=== PATIENT | male | born 1955 | race Caucasian/White ===

== ENCOUNTER 2025-01-26 07:00 | Outpatient (CLI) | payer MEDICARE, OTHER, SELFPAY ==
--- OUTSIDE RECORDS SUMMARY | 2025-01-26 07:06 | XMS_ITS | Continuity of Care Document ---
Author Organization [facility] Address [address] [place] [address] [place] [address] Phone Care Team Providers Care Gui Developer Name Role Phone Imani Hernandez Unavailable Unavailable Procedures Procedure Date Eye Exam & Treatment Refraction Office/outpatient Visit, Est Eye Exam, New Patient Advance Directives Directive Yes / No Effective Date File Name No Information Encounters Encounter Description Practice Location Reason(s) For Visit Diagnoses Date Provider Providers Copied on Encounter [facility], [address] [place] [address] [address], [place], [place], [id number], [place] tel:[phone] SEC [facility] [place] No Information Jul-2 5-200 8 Mary Rodriguez [address] [facility] , [address], [place], [place], [facility], [place]. tel:[phone] Office/outpat ient Visit, Est [facility], [address] [place] [address] [address], [place], [place], [id number], [place] tel:[phone] SEC [facility] No Information Sep-0 6-200 7 Mray Rodriguez [address], [place], [address], [place]. tel:[phone] [facility], [address] [place] [address] [address], [place], [place], [id number], [place] tel:[phone] SEC [facility] No Information 2 3-200 7 Mary Rodriguez [address], [address], [place], [address], [place]. tel:[phone] Family History Family Member Type Diagnosis Age At Onset No Information Payers Payer name Insurance type Covered alliance party ID Authortesfaye billings(s) Medicaid [facility] [id number] Social History Type Description Quantity Date Captured Comments Sex Male Smoking Status No Information Chief Complaint And Reason For Visit No Information Reason For Referral Reason For Referral No Information History Of Present Illness Encounter Date Complaint History Of Prese nt Illness No Information Functional Status Date Functional Assessmen t No Information Instructions Date Instruction Additional Infor mation No Information Assessments Type Assessment Date No Information Patient Care Teams Name Effective Dates (start - stop) Status Members No Information
--- OUTSIDE RECORDS SUMMARY | 2025-01-26 07:06 | XMS_ITS | CONTINUITY OF CARE DOCUMENT ---
Author Name roquenathanshantell Address Unknown Organization [facility] Address [address] [place] [address] Phone [phone] Care Team Providers Care Spring Inspector Name Role Phone Manuel ROMERO, Timothy Shrestha Unavailable [phone] OVIDIO ROMERO, AMIE Unavailable [phone] SCOT ROMERO, JONH Virgen Unavailable [phone] PROBLEMS Condition Status Date Provider Notes CVA active Ever Burt HTN active Timothy Jackson MD PALPITATIONS-08/28 HOLTER SR completed - Taryn nder Javed CHEST PAIN-12/30 STENT LIBERT E L CIRC completed - Ever Burt LEG PAIN - 07/30 NIMCO DOP NEG - 12/30 LOW EXT NEG completed - Timothy Jackson MD SHORTNESS OF BREATH-06/29 SPIROMETRY MOD SEV OBS completed - Ever Burt PVD-07/30 YODIT NL completed - Timothy Jackson MD CAD - 07/30 CATH 50% ISS L CI RC EF 70 active Timothy Jackson MD Hypercholesterolemia active Angie Gonzalez lder Carotid artery stenosis, <50 % ICA b/l active Timothy Jackson MD Upper Airway Resistance Syndrome active Timothy Jackson MD Fatigue completed - Ever Burt Obesity active Timothy Jackson MD ENCOUNTERS Date Type Provider Location Encounter Diag nosis - In-person encounter Office Visit Timothy Jackson MD [facility] - In-person encounter Office Visit Timothy Jackson MD [facility] - In-person encounter Office Visit Timothy Jackson MD [facility] - In-person encounter Office Visit Timothy Jackson MD [facility] - In-person encounter Office Visit Timothy Jackson MD [facility] PALPITATIONS-08/28 HOLTER SRCHEST PAIN-12/30 STENT LIBERTE L CIRCSHORTNESS OF BREATH-06/29 SPIROMETRY MOD SEV OBSFatigue - In-person encounter Office Visit Timothy Jackson MD [facility] - In-person encounter Office Visit Timothy Jackson MD [facility] CVAUpper Airway Resistance Syndrome - In-person encounter Office Visit Timothy Jackson MD [facility] HTNLEG PAIN - 9 NIMCO DOP NEG - 2/09 LOW EXT NEGPVD-07/30 YODIT NLCAD - 07/30 CATH 50% ISS L CIRC EF 70Carotid artery stenosis, <50% ICA b/lUpper Airway Resistance SyndromeObesity - In-person encounter Office Visit Timothy Jackson MD [facility] HTNLEG PAIN - 07/30 NIMCO DOP NEG - 2/09 LOW EXT NEGCAD - 9 CATH 50% ISS L CIRC EF 70 - In-person encounter Office Visit Timothy Jackson MD [facility] - In-person encounter Office Visit Timothy Jackson MD [facility] - In-person encounter Office Visit Timothy Jackson MD [facility] Hypercholesterolemia - In-person encounter Office Visit Timothy Jackson MD [facility] - In-person encounter Office Visit Timothy Jackson MD [facility] - In-person encounter Office Visit Timothy Jackson MD [facility] - In-person encounter Office Visit Timothy Jackson MD [facility] - In-person encounter Office Visit Timothy Jackson MD [facility] - In-person encounter Office Visit Timothy Jackson MD [facility] - In-person encounter Office Visit Timothy Jackson MD [facility] HTN - In-person encounter Office Visit Timothy Jackson MD [facility] SHORTNESS OF BREATH-06/29 SPIROMETRY MOD SEV OBS - In-person encounter Office Visit Negro Gonzalez MD [facility] - In-person encounter Office Visit Timothy Jackson MD [facility] LEG PAIN - 07/30 NIMCO DOP NEG - 12/30 LOW EXT NEG - In-person encounter Office Visit Timothy Jackson MD [facility] CVAHTNCHEST PAIN-12/30 STENT LIBERTE L CIRC VITAL SIGNS Date Observation Value Provider Body Mass Index (Ratio) 29.37 kg/m2 Travis Karimi blood pressure, diastolic 91 mm[Hg] An hardy Patel blood pressure, systolic 135 mm[Hg] Angela Patel oxygen saturation, oximetry 98 % Nicci Patel pulse rate 70 /min Nicci Patel weight E&M 182 [lb_av] Nicci Patel respiratory rate E&M 16 /min Nicci patel blood pressure, cuff size large An hardy Patel height E&M 66 [in_i] Nicci Patel weight E&M 191 [lb_av] Peg Broussard in Body Mass Index (Ratio) 30.82 kg/m2 Bren Pimentel blood pressure, cuff size regular Jose Luis Palomo RN blood pressure, diastolic 78 mm[Hg] Jose Luis Palomo RN blood pressure, systolic 142 mm[Hg] Pavan Palomo RN oxygen saturation, oximetry 98 % Pavan Palomo RN respiratory rate E&M 20 /min Pavan beard RN pulse rate 62 /min Pavan Palomo RN weight E&M 191 [lb_av] Pavan Palomo RN Body Mass Index (Ratio) 31.28 kg/m2 [facility], cuff size regular Jeremy Welshby blood pressure, diastolic 70 mm[Hg] Jeremy Welshby blood pressure, systolic 140 mm[Hg] Adali Welshby pulse rate 62 /min Cecile Welshby oxygen saturation, oximetry 97 % Cecile Welshby respiratory rate E&M 19 /min Cecile Welshby weight E&M 193.8 [lb_av] Cecile Welshby height E&M 66 [in_i] Cecile Welshby Body Mass Index (Ratio) 31.95 kg/m2 Juan tineo [facility] blood pressure, diastolic 87 mm[Hg] Elia mares Pickett blood pressure, systolic 139 mm[Hg] Adelina dedrick Pickett blood pressure, cuff size regular Elia mares Pickett pulse rate 76 /min Ever Cardenas jazmín respiratory rate E&M 16 /min Hyacinht Pickett oxygen saturation, oximetry 97 % Hyacinth Pickett weight E&M 198 [lb_av] Hyacinth Yobanybel l height E&M 66 [in_i] Hyacinth Campbel l Body Mass Index (Ratio) 28.73 kg/m2 Juan tineo [facility] blood pressure, diastolic, left arm 70 mm [Hg] Cristal Whitehead blood pressure, systolic, left arm 130 mm [Hg] [facility] blood pressure, diastolic, right arm 70 m m[Hg] [facility] blood pressure, systolic, right arm 120 m m[Hg] [facility] blood pressure, diastolic 70 mm[Hg] Katrin lopez blood pressure, systolic 130 mm[Hg] Soledad rae oxygen saturation, oximetry 98 % [facility] respiratory rate E&M 16 /min [facility] pulse rate 70 /min [facility] weight E&M 178 [lb_av] [facility] height E&M 66 [in_i] [facility] Body [facility] Index (Ratio) 27.60 kg/m2 Juan Burt blood pressure, cuff size large Cy vishnu Pickett blood pressure, diastolic 80 mm[Hg] Cy vishnu Pickett blood pressure, systolic 122 mm[Hg] Adelina tse Pickett oxygen saturation, oximetry 98 % Hyacinth Pickett respiratory rate E&M 18 /min Hyacinth Pickett pulse rate 66 /min Hyacinth Haywoodbel l weight E&M 171 [lb_av] Hyacinth Campbel l height E&M 66 [in_i] Hyacinth Campbel l Body Mass Index (Ratio) 29.53 kg/m2 Juan Burt blood pressure, cuff size large Ellie Justice blood pressure, diastolic 80 mm[Hg] Ellie Justice blood pressure, systolic 110 mm[Hg] Marlon Justice oxygen saturation, oximetry 98 % Julieth Justice respiratory rate E&M 16 /min Julieth Justice pulse rate 78 /min Julieth Justice weight E&M 183 [lb_av] Julieth Justice height E&M 66 [in_i] Julieth Justice Body Mass Index (Ratio) 31.70 kg/m2 Juan Burt blood pressure, resting Yes Timothy Jackson MD blood pressure, diastolic 81 mm[Hg] Katrin Michael blood pressure, systolic 126 mm[Hg] Soledad Mcwilliams Michael oxygen saturation, oximetry 98 % Barrett Michael respiratory rate E&M 18 /min Murali Michael pulse rate 67 /min Barrett lucas weight E&M 196.4 [lb_av] Barrett bentonon height E&M 66 [in_i] Barrett Chavez christaon blood pressure, diastolic 95 mm[Hg] Mathew Portillo blood pressure, systolic 151 mm[Hg] Tim Portillo pulse rate 64 /min Angie Gonzalez er oxygen saturation, oximetry 98 % Angie Portillo respiratory rate E&M 16 /min Angie vidal Body Mass Index (Ratio) 30.82 kg/m2 Carranza stuart Portillo weight E&M 191 [lb_av] Angie Carlos er Body Mass Index (Ratio) 34.70 kg/m2 Anea harsh Brown blood pressure, diastolic, left arm 88 mm [Hg] Aneatris Brown blood pressure, systolic, left arm 138 mm [Hg] Aneatris Brown blood pressure, diastolic, right arm 108 mm[Hg] Aneatris Brown blood pressure, systolic, right arm 154 m m[Hg] Aneatris Brown blood pressure, diastolic 88 mm[Hg] An eatris Brown blood pressure, systolic 138 mm[Hg] Ane atris Brown pulse rate 77 /min Aneatris Julio oxygen saturation, oximetry 99 % Aneatris Julio respiratory rate E&M 17 /min Aneatri s [facility] weight E&M 215 [lb_av] Asuncionatris Julio orthostatic blood pr essure, sitting, left arm, diastolic 80 Sherry Adams orthostatic blood pr essure, sitting, left arm, systolic 116 Sherry Gutierrezoney orthostatic blood pr essure, sitting, right arm, diastolic 86 Sherry Gutierrezoney orthostatic blood pr essure, sitting, right arm, systolic 122 Sherry Gutierrezoney height E&M 66 [in_i] Sherry Adams height in centimeters E&M 167.64 cm Na anujkobe Adams Body Mass Index (Ratio) 32.56 kg/m2 Constantino cummings Moore blood pressure, diastolic, left arm 106 m m[Hg] [facility] blood pressure, systolic, left arm 161 mm [Hg] [facility] blood pressure, diastolic, right arm 101 mm[Hg] [facility] blood pressure, systolic, right arm 157 m m[Hg] [facility] blood pressure, diastolic 106 mm[Hg] Richards Moore blood pressure, systolic 161 mm[Hg] Thiago tristan Ballico pulse rate 78 /min [facility] oxygen saturation, oximetry 98 % [facility] respiratory rate E&M 16 /min [facility] weight E&M 201 [lb_av] Thiagotristan Moore Body Mass Index (Ratio) 35.64 kg/m2 Tere Portillo blood pressure, diastolic 96 mm[Hg] Mathew Portillo blood pressure, systolic 132 mm[Hg] Tim Portillo pulse rate 75 /min Angie Carlos segundoer oxygen saturation, oximetry 98 % Angie Bandar respiratory rate E&M 17 /min Angie G young weight E&M 220 [lb_av] Angie Carols segundoer blood pressure, diastolic, left arm 102 m m[Hg] Pavan Palomo RN blood pressure, systolic, left arm 149 mm [Hg] Pavan Palomo RN blood pressure, diastolic, right arm 94 m m[Hg] Pavan Palomo RN blood pressure, systolic, right arm 150 m m[Hg] Pavan Palomo RN blood pressure, diastolic 102 mm[Hg] Jose Luis Palomo RN blood pressure, systolic 149 mm[Hg] Pavan Palomo RN pulse rate 77 /min Pavan Palomo RN oxygen saturation, oximetry 98 % Pavan Palomo RN respiratory rate E&M 17 /min Pavan beard RN weight E&M 217 [lb_av] Pavan Palomo RN height E&M 66 [in_i] Pavan Palomo RN blood pressure, diastolic, left arm 79 mm [Hg] Darwin Moore blood pressure, systolic, left arm 115 mm [Hg] Darwin Moore blood pressure, diastolic, right arm 84 m m[Hg] Darwin Moore blood pressure, systolic, right arm 129 m m[Hg] Darwin Moore blood pressure, diastolic 79 mm[Hg] Gonzales blood pressure, systolic 115 mm[Hg] Thiago Moore pulse rate 76 /min Darwin Moore oxygen saturation, oximetry 98 % Darwin Moore respiratory rate E&M 16 /min Darwin Moore weight E&M 208 [lb_av] Darwin Moore blood pressure, diastolic, left arm 50 mm [Hg] Jesenia Patricia blood pressure, systolic, left arm 96 mm[ Hg] [facility] blood pressure, diastolic, right arm 51 m m[Hg] [facility] blood pressure, systolic, right arm 98 mm [Hg] [facility] blood pressure, diastolic 51 mm[Hg] Sherwin rey Patricia blood pressure, systolic 98 mm[Hg] Costa suresh [place] pulse rate 80 /min Jesenia [place] oxygen saturation, oximetry 94 % [facility] respiratory rate E&M 16 /min [facility] weight E&M 201 [lb_av] Jeseniasuresh Patricia blood pressure, diastolic, left arm 81 mm [Hg] Pavan Palomo RN blood pressure, systolic, left arm 123 mm [Hg] Pavan Palomo RN blood pressure, diastolic, right arm 79 m m[Hg] Pavan Palomo RN blood pressure, systolic, right arm 116 m m[Hg] Pavan Palomo RN blood pressure, diastolic 81 mm[Hg] Jose Luis Palomo RN blood pressure, systolic 123 mm[Hg] Pavan Palomo RN pulse rate 67 /min Pavan Palomo RN oxygen saturation, oximetry 97 % Pavan Palomo RN respiratory rate E&M 18 /min Pavan beard RN weight E&M 201 [lb_av] Pavan Palomo RN blood pressure, diastolic 69 mm[Hg] Bj Heredia blood pressure, systolic 109 mm[Hg] Agustin Heredia pulse rate 75 /min Angelica Heredia oxygen saturation, oximetry 98 % Angelica Heredia respiratory rate E&M 18 /min Dez Heredia weight E&M 189 [lb_av] Angelica Heredia blood pressure, diastolic, left arm 67 mm [Hg] Benjamin Gaines blood pressure, systolic, left arm 105 mm [Hg] Benjamin Gaines blood pressure, diastolic, right arm 65 m m[Hg] [facility], [facility] 102 m m[Hg] [facility], [facility] 65 mm[Hg] Sravani klein [place] blood pressure, systolic 102 mm[Hg] Selwyn klein [place] pulse rate 80 /min [facility], oximetry 98 % [facility] rate E&M 16 /min [facility] weight E&M 185.5 [lb_av] Benjamin [place] blood pressure, diastolic 57 mm[Hg] Jose Luis Palomo RN blood pressure, systolic 95 mm[Hg] Pavan Palomo RN blood pressure, diastolic, left arm 57 mm [Hg] Pavan Palomo RN blood pressure, systolic, left arm 95 mm[ Hg] Pavan Palomo RN blood pressure, diastolic, right arm 64 m m[Hg] Pavan Palomo RN blood pressure, systolic, right arm 108 m m[Hg] Pavan Palomo RN pulse rate 80 /min Angelica Heredia oxygen saturation, oximetry 98 % Angelica Heredia respiratory rate E&M 16 /min Dez Heredia weight E&M 182 [lb_av] Angelica Heredia blood pressure, diastolic 73 mm[Hg] Ca hannah Velasquez blood pressure, systolic 112 mm[Hg] Nacho Velasquez pulse rate 68 /min Kait Velasquez oxygen saturation, oximetry 98 % Kait Velasquez respiratory rate E&M 16 /min Kait le weight E&M 182 [lb_av] Kait Velasquez blood pressure, diastolic 103 mm[Hg] Jose Luis Palomo RN blood pressure, systolic 164 mm[Hg] Pavan Palomo RN pulse rate 69 /min Pavan Palomo RN oxygen saturation, oximetry 100 % Pavan Palomo RN respiratory rate E&M 18 /min Pavan beard RN weight E&M 184 [lb_av] Pavan Dewey TIM blood pressure, diastolic 87 mm[Hg] Jose Luis Palomo RN blood pressure, systolic 135 mm[Hg] Pavan Palomo RN pulse rate 62 /min Pavan Palomo RN oxygen saturation, oximetry 99 % Pavan Palomo RN respiratory rate E&M 16 /min Pavan beard RN weight E&M 202 [lb_av] Pavan Palomo RN blood pressure, diastolic 91 mm[Hg] Jose Luis Palomo RN blood pressure, systolic 139 mm[Hg] Pavan Palomo RN pulse rate 74 /min Pavan Palomo RN oxygen saturation, oximetry 98 % Pavan Palomo RN respiratory rate E&M 18 /min Pavan beard RN weight E&M 195 [lb_av] Pavan Palomo RN ALLERGIES Allergy Name Onset Date Reaction Criticality Status COZAAR cough cough Low Criticality active RESULTS Date Observation Value Provider Reference Range Interpretation Location hemoglobin A1C, blood, as % of total hemoglobin 5.0 % [facility] LDL cholesterol, serum 62 mg/dL [facility] triglyceride, serum, fasting 143 mg/dL Pavan Palomo RN HDL cholesterol, serum 29 mg/dL Pavan Palomo RN LDL cholesterol, serum 88 mg/dL Pavan Palomo RN cholesterol, serum 146 mg/dL Pavan Palomo RN international normalized ratio (INR) 1.0 Jennie Graham RN blood glucose, fasting 83 mg/dL Jennie Graham RN creatinine, serum 1.27 mg/dL Jennie Graham RN urea nitrogen, blood 17 mg/dL Jennie Graham RN carbon dioxide, serum, total 29 mmol/L Jennie Graham RN chloride, serum 102 mmol/L [facility] potassium, serum 4.2 mmol/L [facility] sodium, serum 136 mmol/L [facility] platelet count 162 10*3/uL [facility] hematocrit, blood 35.8 % [facility] hemoglobin, blood 12.8 g/dL [facility] leukocyte count, blood 6.2 10*3/mm3 [facility] triglyceride, serum, fasting 110 mg/dL [facility] HDL cholesterol, serum 58 mg/dL [facility] LDL cholesterol, serum 62 mg/dL [facility] cholesterol, serum 142 mg/dL [facility] alanine aminotransferase (SGPT), serum 33 1/L [facility] aspartate aminotransferase (SGOT), serum 21 1/L [facility] creatinine, serum 1.07 mg/dL [facility] urea nitrogen, blood 12 mg/dL [facility] carbon dioxide, serum, total 31 mmol/L [facility] chloride, serum 104 mmol/L [facility] potassium, serum 3.5 mmol/L [facility] sodium, serum 140 mmol/L [facility] platelet count 173 10*3/uL [facility] hematocrit, blood 42.0 % [facility] hemoglobin, blood 15.4 g/dL [facility] erythrocyte (RBC) count 5.35 10*6/mm3 [facility] leukocyte count, blood 6.7 10*3/mm3 [facility] GLENROY HISTORY OF MEDICATION USE Medication Status Instructions Dates Provider Indications Com ments hydrochlorothiazide 12.5 mg capsule active TAKE ONE CAPSULE BY MOUTH EVERY DAY 12/02 Timothy Jackson MD carvedilol 12.5 mg tablet active TAKE ONE TABLET BY MOUTH TWICE DAILY Cyndie Pimentel ibuprofen 400 mg tablet active 1 tablet twice a day as needed 06/14 Timothy Jackson MD TYLENOL TABLET active Take four times a day as needed 06/14 Timothy Jackson MD amlodipine 5 mg tablet active 1 tablet once a day 06/05 Cecile Saucedo hydrochlorothiazide 12.5 mg capsule completed Take 1 capsule by mouth once a day 12/31 - 12/02 James Steiner simvastatin 10 mg tablet active 1 tablet once a day 06/11 Cecile Saucedo SIMVASTATIN 10 MG ORAL TABLET completed ONE TAB. AT BEDTIME 12/13 - 12/27 Timothy Jackson MD LOSARTAN POTASSIUM-HCTZ 50-12.5 MG ORAL TABLET completed one tab daily - 02/18 Pavan Palomo RN IBUPROFEN completed - 07/29 Angie Portillo NAPROSYN 375 MG ORAL TABLET completed take 2 daily - 07/29 Jesenia Patricia CYCLOBENZAPRINE HCL 10 MG ORAL TABLET completed take one daily - 07/29 Jesenia Patricia carvedilol 12.5 mg tablet completed 1 tablet twice a day 06/11 - Cyndie Pimentel BENICAR HCT 20-12.5 MG ORAL TABLET completed po once daily 05/21 - 12/13 Pavan Palomo RN PLAVIX 75 MG ORAL TABLET completed ONCE DAILY 12/27 - 11/29 Timothy Jackson MD HYDROCHLOROT completed 25mg every day - 05/21 Pavan Palomo RN ASPIRIN 81 MG ORAL TABLET active 1 tablet once a day Pavan Palomo RN NORVASC 10 MG ORAL TABLET completed ONE TAB. DAILY 01/22 - 05/19 Timothy Jackson MD SOCIAL HISTORY Date Observation Value Provider drug use no Niccizak Patel alcohol use no Nicci Jorge passive cigarette sm beata exposure no Nicci Jorge smoking status Never smoker Nicci Patel social history reviewed E&M revi ewed - no changes required Timothy Jackson MD social history E&M Marital Statu s: L alejandra with family/friends E thnicity: Smoking History: Fermin villar has never smoked. Timothy Jackson MD social history reviewed E&M revi ewed - no changes required Timothy Jackson MD exercise type yard work Cecile Saucedo physical exercise, frequency, days per week no Cecile Saucedo caffeine use, averag e drinks per day 0 /d Cecile Saucedo passive cigarette sm beata exposure no Cecile Saucedo smoking status Never smoker Cecile Saucedo social history reviewed E&M revi ewed - no changes required Ever Burt physical exercise, frequency, days per week no Hyacinth Pickett caffeine use, averag e drinks per day 0 /d Hyacinth Pickett passive cigarette sm beata exposure no Hyacinth Pickett smoking status Never smoker Hyacinth scanlon social history reviewed E&M revi ewed - no changes required Ever Burt exercise type yard work Cristal O'Junior alcohol use, average drinks per day none Cristal O'Junior alcohol use no Cristal O'Junior caffeine use, averag e drinks per day 0 /d Cristal O'Junior drug use no Cristal O'Junior passive cigarette sm beata exposure no Cristal O'Junior smoking status Never smoker Cristal O'Junior social history reviewed E&M revi ewed - no changes required Timothy Jackson MD exercise type yard work Hyacinth bishop alcohol use, average drinks per day none Hyacinth Pickett alcohol use no Hyacinth rahman caffeine use, averag e drinks per day 0 /d Hyacinth Pickett drug use no Hyacinth rahman passive cigarette sm beata exposure no Hyacinth Pickett smoking status Never smoker Hyacinth scanlon social history E&M Marital Statu s: Edin roberts with family/friends E thnicity: Smoking History: Fermin villar has never smoked. Ever Javed social history reviewed E&M revi ewed - no changes required Ever Javed exercise type yard work Julieth Justice physical exercise, frequency, days per week no Julieth Justice alcohol use, average drinks per day none Julieth Justice alcohol use no Julieth Justice caffeine use, averag e drinks per day 0 /d Ever Masberg drug use no Julieth Justice passive cigarette sm beata exposure no Julieth Justice smoking status Never smoker Julieth Justice social history reviewed E&M revi ewed - no changes required Timothy Jackson MD exercise type yard work Barrett Burns laura physical exercise, frequency, days per week no Barrett Michael alcohol use, average drinks per day none Barrett Michael alcohol use no Barrett Chavez christajoel caffeine use, averag e drinks per day no Barrett Michael drug use no Barrett lucas passive cigarette sm beata exposure no Barrett Michael smoking status Never smoker Barrett Frantz conteh social history E&M Marital Statu s: Edin roberts with family/friends E thnicity: Smoking History: Fermin villar has never smoked. Timothy Jackson MD social history reviewed E&M revi ewed - no changes required Timothy Jackson MD exercise type yard work Angie bello physical exercise, frequency, days per week no Angie Portillo alcohol use, average drinks per day none Angie Portillo alcohol use no Angie garcia caffeine use, averag e drinks per day no Angie Arzatefanlorrieeugenia drug use no Angie Gonzalez lder passive cigarette sm beata exposure no Angie Portillo smoking status Never smoker Angie franco exercise type yard work Ilsa Blunt physical exercise, frequency, days per week no Ilsa Blunt alcohol use, average drinks per day none Ilsa Blunt caffeine use, averag e drinks per day no Ilsa Blunt drug use no Ilsa Blunt passive cigarette sm beata exposure no Ilsa Blunt smoking status Never smoker Ilsa Blunt social history reviewed E&M reviewed Timothy Jackson MD exercise type yard work Thiagokatharinetristan Soto n drug use no Denyetristan Moore drug use none Timothy Jackson MD social history reviewed E&M reviewed Timothy Jackson MD drug use no Pavan Palomo RN passive cigarette sm beata exposure no Pavan Palomo RN social history reviewed E&M reviewed Pavan Palomo RN smoking status never smoker Pavan Palomo RN social history reviewed E&M reviewed Pavan Palomo RN social history reviewed E&M reviewed Timothy Jackson MD social history reviewed E&M reviewed Pavan Palomo RN social history reviewed E&M reviewed Pavan Palomo RN social history reviewed E&M reviewed Pavan Palomo RN social history reviewed E&M reviewed Pavan Palomo RN social history reviewed E&M reviewed Pavan Palomo RN social history reviewed E&M reviewed Pavan Palomo RN social history reviewed E&M reviewed Pavan Palomo RN social history E&M Marital Statu s: L alejandra with family/friends E thnicity: Pavan Palomo RN social history reviewed E&M reviewed Pavan Palomo RN physical exercise, frequency, days per week no [facility] caffeine use, averag e drinks per day no [facility] alcohol use, average drinks per day none [facility] smoking status Non-smoker [facility] FUNCTIONAL STATUS Date Observation Value Provider HRA, CV Assess/Plan, Angina (inactive) Management Plan continue current therapy Timothy Jackson MD HRA, CV Assess/Plan, Angina (inactive) Management Plan continue current therapy Timothy Jackson MD HRA, CV Assess/Plan, Angina (inactive) Management Plan continue current therapy [facility] HRA, CV Assess/Plan, Angina (inactive) Management Plan continue current therapy [facility] HRA, CV Assess/Plan, Angina (inactive) Management Plan continue current therapy Timothy Jackson MD HRA, CV Assess/Plan, Angina (inactive) Management Plan continue current therapy Timothy Jackson MD HRA, CV Assess/Plan, Angina (inactive) Management Plan continue current therapy Timothy Jackson MD MENTAL STATUS Date Observation Value Provider assessment of judgme nt and insight E&M Alert and oriented to time, place and person. Mood and affect are normal. Timothy Jackson MD assessment of judgme nt and insight E&M Alert and oriented to time, place and person. Mood and affect are normal. Timothy Jackson MD assessment of judgme nt and insight E&M Alert and oriented to time, place and person. Mood and affect are normal. Pavan Palomo RN assessment of judgme nt and insight E&M Alert and oriented to time, place and person. Mood and affect are normal. Pavan Palomo RN assessment of judgme nt and insight E&M Alert and oriented to time, place and person. Mood and affect are normal. Timothy Jackson MD assessment of judgme nt and insight E&M Alert and oriented to time, place and person. Mood and affect are normal. Pavan Palomo RN assessment of judgme nt and insight E&M Alert and oriented to time, place and person. Mood and affect are normal. Pavan Palomo RN assessment of judgme nt and insight E&M Alert and oriented to time, place and person. Mood and affect are normal. Pavan Palomo RN assessment of judgme nt and insight E&M Alert and oriented to time, place and person. Mood and affect are normal. Pavan Palomo RN assessment of judgme nt and insight E&M Alert and oriented to time, place and person. Mood and affect are normal. Pavan Palomo RN assessment of judgme nt and insight E&M Alert and oriented to time, place and person. Mood and affect are normal. Pavan Palomo RN assessment of judgme nt and insight E&M Alert and oriented to time, place and person. Mood and affect are normal. Pavan Palomo RN assessment of judgme nt and insight E&M Alert and oriented to time, place and person. Mood and affect are normal. Pavan Palomo RN FAMILY HISTORY Family Member Condition Full Brother Family History of CV A or Stroke: Full Sister Family History of CV A or Stroke: Mother Family History of Hy pertension: INSURANCE PROVIDERS Payer name Policy type / Coverage type Dwight red democrat [place] [employer] Medicaid [id number] ADVANCE DIRECTIVES Name Date DISCUSSED - NO DECISION MADE TREATMENT PLAN Date Name Performer [id number],C, W eight loss advised Cyndie Pimentel [id number],C, H is updated medication list for this problem includes: Simvastatin 10 Mg Tablet (Simvastatin) ..... 1 tablet once a day Cyndie Pimentel [id number],C, B P today: 142/78 P rior BP: 140/70 (09/02/2021) Labs Reviewed: C reat: 1.27 (08/14/2009) C hol: 146 (12/13/2012) HDL: 29 (12/13/2012) LDL: 62 (12/08/2016) T (12/13/2012) His updated medication list for this problem includes: Hydrochlorothiazide 12.5 Mg Capsule (Hydrochlorothiazide) ..... Take one capsule by mouth every day Carvedilol 12.5 Mg Tablet (Carvedilol) ..... Take one tablet by mouth twice daily Amlodipine 5 Mg Tablet (Amlodipine) ..... 1 tablet once a day Cyndie Loren [id number],C,P t denies chest pain and SOB. He has CAD stents placed over 10 years ago. In view of his hx, will check A1C, lipid panel, echo, and stress test routine H is updated medication list for this problem includes: Carvedilol 12.5 Mg Tablet (Carvedilol) ..... Take one tablet by mouth twice daily Amlodipine 5 Mg Tablet (Amlodipine) ..... 1 tablet once a day Cyndie Pimentel [id number],S, Recommend to check fasting lipid panel. Keep LDL < 70. H is updated medication list for this problem includes: Simvastatin 10 Mg Tablet (Simvastatin) ..... 1 tablet once a day Cyndie Pimentel [id number],C, B P today: 140/70 P rior BP: 139/87 (09/08/2020) Labs Reviewed: C reat: 1.27 (08/14/2009) C hol: 146 (12/13/2012) HDL: 29 (12/13/2012) LDL: 62 (12/08/2016) T (12/13/2012) His updated medication list for this problem includes: Carvedilol 12.5 Mg Tablet (Carvedilol) ..... 1 tablet twice a day Amlodipine 5 Mg Tablet (Amlodipine) ..... 1 tablet once a day Hydrochlorothiazide 12.5 Mg Capsule (Hydrochlorothiazide) ..... Take 1 capsule by mouth once a day Cyndie Pimentel [id number],S, Cyndie parsons [id number],S, M ost recent carotid duplex was normal. Cyndie Pimentel [id number],C,O linda doing well. Pt denies SOB and chest pain. Will obtain f/u echo. Recommend to check fasting lipid panel. Keep LDL < 70. H is updated medication list for this problem includes: Carvedilol 12.5 Mg Tablet (Carvedilol) ..... 1 tablet twice a day Amlodipine 5 Mg Tablet (Amlodipine) ..... 1 tablet once a day Cyndie Pimentel Cardiology:BP is mil dly elevated. We advised her to monitor at home and contact us if it is still elevated. BP today: 135/91 P rior BP: 142/78 (02/02/2023) His updated medication list for this problem includes: Hydrochlorothiazide 12.5 Mg Capsule (Hydrochlorothiazide) ..... Take one capsule by mouth every day Carvedilol 12.5 Mg Tablet (Carvedilol) ..... Take one tablet by mouth twice daily Amlodipine 5 Mg Tablet (Amlodipine) ..... 1 tablet once a day Austin Karimi Cardiology:He denies chest pain and SOB. He has CAD stents placed over 10 years ago. Last year echo showed normal EF. Stress test showed some nonspecific changes. Not diagnostic for ischemia. I recommended stress test with imaging however he not interested. His updated medication list for this problem includes: Carvedilol 12.5 Mg Tablet (Carvedilol) ..... Take one tablet by mouth twice daily Amlodipine 5 Mg Tablet (Amlodipine) ..... 1 tablet once a day Austin Karimi Cardiology: H is updated medication list for this problem includes: Simvastatin 10 Mg Tablet (Simvastatin) ..... 1 tablet once a day [facility]imi Cardiology [facility]imi Cardiology: W eight loss advised Cyndie Pimentel Cardiology: H is updated medication list for this problem includes: Simvastatin 10 Mg Tablet (Simvastatin) ..... 1 tablet once a day Cyndie Pimentel Cardiology: B P today: 142/78 P rior BP: 140/70 (09/02/2021) Labs Reviewed: C reat: 1.27 (08/14/2009) C hol: 146 (12/13/2012) HDL: 29 (12/13/2012) LDL: 62 (12/08/2016) T (12/13/2012) His updated medication list for this problem includes: Hydrochlorothiazide 12.5 Mg Capsule (Hydrochlorothiazide) ..... Take one capsule by mouth every day Carvedilol 12.5 Mg Tablet (Carvedilol) ..... Take one tablet by mouth twice daily Amlodipine 5 Mg Tablet (Amlodipine) ..... 1 tablet once a day Cyndie Pimentel Cardiology:Pt denies chest pain and SOB. He has CAD stents placed over 10 years ago. In view of his hx, will check A1C, lipid panel, echo, and stress test routine H is updated medication list for this problem includes: Carvedilol 12.5 Mg Tablet (Carvedilol) ..... Take one tablet by mouth twice daily Amlodipine 5 Mg Tablet (Amlodipine) ..... 1 tablet once a day Cyndie Pimentel Cardiology: Recommen d to check fasting lipid panel. Keep LDL < 70. H is updated medication list for this problem includes: Simvastatin 10 Mg Tablet (Simvastatin) ..... 1 tablet once a day Cyndie Pimentel Cardiology: B P today: 140/70 P rior BP: 139/87 (09/08/2020) Labs Reviewed: C reat: 1.27 (08/14/2009) C hol: 146 (12/13/2012) HDL: 29 (12/13/2012) LDL: 62 (12/08/2016) T (12/13/2012) His updated medication list for this problem includes: Carvedilol 12.5 Mg Tablet (Carvedilol) ..... 1 tablet twice a day Amlodipine 5 Mg Tablet (Amlodipine) ..... 1 tablet once a day Hydrochlorothiazide 12.5 Mg Capsule (Hydrochlorothiazide) ..... Take 1 capsule by mouth once a day Cyndie Pimentel Cardiology Cyndie Zaragoza eyer Cardiology: M ost recent carotid duplex was normal. Cyndie Pimentel Cardiology:Overall d oing well. Pt denies SOB and chest pain. Will obtain f/u echo. Recommend to check fasting lipid panel. Keep LDL < 70. H is updated medication list for this problem includes: Carvedilol 12.5 Mg Tablet (Carvedilol) ..... 1 tablet twice a day Amlodipine 5 Mg Tablet (Amlodipine) ..... 1 tablet once a day Cyndie Pimentel Cardiology follow up :Has hx of CVA. Discussed [facility] but pt not interested at this time. [facility] Cardiology follow up :His updated medication list for this problem includes: Simvastatin 10 Mg Oral Tablet (Simvastatin) ..... One tablet daily [facility] Cardiology follow up :BP today: 139/87 P rior BP: 130/70 (06/13/2019) His updated medication list for this problem includes: Amlodipine Besylate 5 Mg Oral Tablet (Amlodipine besylate) ..... One tab. daily Hydrochlorothiazide 12.5 Mg Oral Capsule (Hydrochlorothiazide) ..... One capsule daily Carvedilol 12.5 Mg Oral Tablet (Carvedilol) ..... One tab twice a day [facility] Cardiology follow up :Doing well. No chest pain or SOB. We will obtain a f/u echo. Will continue current medications. His updated medication list for this problem includes: Amlodipine Besylate 5 Mg Oral Tablet (Amlodipine besylate) ..... One tab. daily Aspirin 81 Mg Oral Tablet (Aspirin) ..... One tab. daily Carvedilol 12.5 Mg Oral Tablet (Carvedilol) ..... One tab twice a day [facility] Cardiology:Down ~20 lbs since . [facility] Card[facility]:Recommend ed for PCP to check lipid and liver panels and adjust medications to keep LDL less than 70. Labs reviewed: C HOL: 134 (12/08/2016) HDL: 45 (12/08/2016) LDL: 62 (12/08/2016) TRI (12/08/2016) His updated medication list for this problem includes: Simvastatin 10 Mg Oral Tablet (Simvastatin) ..... One tab. at bedtime [facility] Cardiology:BP today: 130/70 P rior BP: 122/80 (06/14/2018) His updated medication list for this problem includes: Amlodipine Besylate 5 Mg Oral Tablet (Amlodipine besylate) ..... One tab daily Hydrochlorothiazide 12.5 Mg Oral Capsule (Hydrochlorothiazide) ..... One tab. daily Carvedilol 12.5 Mg Oral Tablet (Carvedilol) ..... One tab twice a day [facility] Cardiology:Denies ch est pain or SOB. Does not have fatigue or dizziness. No new EKG changes. His updated medication list for this problem includes: Amlodipine Besylate 5 Mg Oral Tablet (Amlodipine besylate) ..... One tab daily Aspirin 81 Mg Oral Tablet (Aspirin) ..... One tab. daily Carvedilol 12.5 Mg Oral Tablet (Carvedilol) ..... One tab twice a day [facility] Followup: BP today: 122/80 P rior BP: 110/80 (03/28/2017) His updated medication list for this problem includes: Amlodipine Besylate 5 Mg Oral Tablet (Amlodipine besylate) ..... One tab daily Hydrochlorothiazide 12.5 Mg Oral Capsule (Hydrochlorothiazide) ..... One tab. daily Carvedilol 12.5 Mg Oral Tablet (Carvedilol) ..... One tab twice a day [facility] Followup: His updated medication list for this problem includes: Amlodipine Besylate 5 Mg Oral Tablet (Amlodipine besylate) ..... One tab daily Aspirin 81 Mg Oral Tablet (Aspirin) ..... One tab. daily Carvedilol 12.5 Mg Oral Tablet (Carvedilol) ..... One tab twice a day [facility] Follow up :Exercise and weight loss advised. [facility] Follow up :His updated medication list for this problem includes: Simvastatin 10 Mg Tabs (Simvastatin) ..... One tab. at bedtime [facility] Follow up :BP today: 110/80 P rior BP: 126/81 (11/29/2016) His updated medication list for this problem includes: Amlodipine Besylate 5 Mg Oral Tabs (Amlodipine besylate) ..... One tab daily Hydrochlorothiazide 12.5 Mg Caps (Hydrochlorothiazide) ..... One tab. daily Carvedilol 12.5 Mg Tabs (Carvedilol) ..... One tab twice a day [facility] Cardiology Follow up :Resolved. Echo showed normal EF. Sleep study did not show significant sleep apnea. [facility] Follow up :Most recent carotid duplex was normal. [facility] Follow up :Most recent carotid duplex was normal. [facility] Follow up :No chest pain or SOB. His updated medication list for this problem includes: Amlodipine Besylate 5 Mg Oral Tabs (Amlodipine besylate) ..... One tab daily Aspirin 81 Mg Tabs (Aspirin) ..... One tab. daily Carvedilol 12.5 Mg Tabs (Carvedilol) ..... One tab twice a day [facility]:BP today: 126/81 P rior BP: 151/95 (12/31/2015) His updated medication list for this problem includes: Aspirin 81 Mg Tabs (Aspirin) ..... One tab. daily Carvedilol 12.5 Mg Tabs (Carvedilol) ..... One tab twice a day Losartan Potassium-hctz 50-12.5 Mg Tabs (Losartan potassium-hctz) ..... One tab daily Timothy Jackson MD Cardiology:Orders: L IPID PANEL (7600) H EMOGLOBIN A1c (496) H EPATIC FUNCTION PANEL (37399) CHOL: 146 (12/13/2012) LDL: 88 (12/13/2012) HDL: 29 (12/13/2012) T (12/13/2012) H is updated medication list for this problem includes: Simvastatin 10 Mg Tabs (Simvastatin) ..... One tab. at bedtime Timothy Jackson MD Cardiology:Will obtain f/u carot id duplex. Timothy Jackson MD Cardiology:STOP BANG score is 4+ . Timothy Jackson MD Cardiology:Orders: S leep Study Home (CPT-37207) Timothy Jackson MD Cardiology:Stable. N o chest pain or SOB. Will stop Plavix (last stent was in 2008). Continuing on ASA. Timothy Jackson MD Cardiology:CHOL: 146 (12/13/2012) LDL: 88 (12/13/2012) HDL: 29 (12/13/2012) T (12/13/2012) His updated medication list for this problem includes: Simvastatin 10 Mg Tabs (Simvastatin) ..... One tab. at bedtime Timothy Jackson MD Cardiology:BP today: 151/95 P rior BP: 138/88 (01/29/2015) His updated medication list for this problem includes: Aspirin 81 Mg Tabs (Aspirin) ..... One tab. daily Carvedilol 12.5 Mg Tabs (Carvedilol) ..... One tab twice a day Losartan Potassium-hctz 50-12.5 Mg Tabs (Losartan potassium-hctz) ..... One tab daily Timothy Jackson MD Cardiology:No complaints. Timothy Jackson MD Cardiology:No complaints. Timothy Jackson MD Cardiology:No complaints. Timothy Jackson MD Cardiology:No complaints. Timothy Jackson MD routine: H is updated medication list for this problem includes: Aspirin 81 Mg Tabs (Aspirin) ..... One tab. daily Norvasc 10 Mg Tabs (Amlodipine besylate) ..... One tab. daily Carvedilol 6.25 Mg Tabs (Carvedilol) ..... One tab. twice daily Plavix 75 Mg Tabs (Clopidogrel bisulfate) ..... Once daily BP today: 109/69 Prior BP: 102/65 (09/17/2009) N uclear Stress Findings: Adenosine mediated myocardial perfusion study Normal left ventricular systolic function with a calculated ejection fraction of 74%. Myocardial scintigraphy demonstrates inferior wall ischemia. GC (07/29/2009) S tress Echo Findings: Negative Dobutamine echocardiogram. T est is negative by EKG criteria. B aseline echo was normal. (08/21/2008) C ardiac Cath: There is 50% stenosis within the stent in the left circumflex. This is a borderline lesion and difficult to ascertain whether there is ischemia. Will continue medical management. If symptoms recur, we are going to bring in for cardiac catheterization with flow, with Radi wire assessment of the left circumflex and the left anterior descending. In addition, spirometry was abnormal and will defer to the primary physician for that. EF 70%. [facility] (08/20/2009) C ardiac Cath Comments: Successful stenting of the left circumflex using a 3.5 x 20mm Liberte stent. [facility] (12/25/2008) C arotid Doppler/Duplex: LESS THAN 50 % STENOSIS OF THE INTERNAL CAROTID A RTERIES BILATERALLY. (09/02/2008) A rterial Doppler (leg): NO EVIDENCE OF AN PSEUDOANEURYSM IN THE RIGHT GROIN. [facility] (12/27/2008) C HOL: 142 (12/18/2008) LDL: 62 (12/18/2008) HDL: 58 (12/18/2008) T (12/18/2008) H gb: 12.8 (08/14/2009) HCT: 35.8 (08/14/2009) RBC: 5.35 (12/18/2008) WBC: 6.2 (08/14/2009) B UN: 17 (08/14/2009) Creat: 1.27 (08/14/2009) Glucose: 83 (08/14/2009) N a+: 136 (08/14/2009) K+: 4.2 (08/14/2009) Cl: 102 (08/14/2009) INR: 1.0 (08/14/2009) Timothy Jackson MD Follow-up s/p Cardia c Cath: H is updated medication list for this problem includes: Aspirin 81 Mg Tabs (Aspirin) ..... One tab. daily Norvasc 10 Mg Tabs (Amlodipine besylate) ..... One tab. daily Carvedilol 6.25 Mg Tabs (Carvedilol) ..... One tab. twice daily Plavix 75 Mg Tabs (Clopidogrel bisulfate) ..... Once daily BP today: 102/65 Prior BP: 95/57 (08/11/2009) Nuclear Stress Findings: Adenosine mediated myocardial perfusion study Normal left ventricular systolic function with a calculated ejection fraction of 74%. Myocardial scintigraphy demonstrates inferior wall ischemia. (07/29/2009) S tress Echo Findings: Negative Dobutamine echocardiogram. T est is negative by EKG criteria. B aseline echo was normal. (08/21/2008) Cardiac Cath: There is 50% stenosis within the stent in the left circumflex. This is a borderline lesion and difficult to ascertain whether there is ischemia. Will continue medical management. If symptoms recur, we are going to bring in for cardiac catheterization with flow, with Radi wire assessment of the left circumflex and the left anterior descending. In addition, spirometry was abnormal and will defer to the primary physician for that. EF 70%. [facility] (08/20/2009) C ardiac Cath Comments: Successful stenting of the left circumflex using a 3.5 x 20mm Liberte stent. [facility] (12/25/2008) C arotid Doppler/Duplex: LESS THAN 50 % STENOSIS OF THE INTERNAL CAROTID A RTERIES BILATERALLY. (09/02/2008) A rterial Doppler (leg): NO EVIDENCE OF AN PSEUDOANEURYSM IN THE RIGHT GROIN. [facility] (12/27/2008) C HOL: 142 (12/18/2008) LDL: 62 (12/18/2008) HDL: 58 (12/18/2008) T (12/18/2008) H gb: 12.8 (08/14/2009) HCT: 35.8 (08/14/2009) RBC: 5.35 (12/18/2008) WBC: 6.2 (08/14/2009) B UN: 17 (08/14/2009) Creat: 1.27 (08/14/2009) Glucose: 83 (08/14/2009) N a+: 136 (08/14/2009) K+: 4.2 (08/14/2009) Cl: 102 (08/14/2009) INR: 1.0 (08/14/2009) Timothy Jackson MD f/u: H is updated medication list for this problem includes: Norvasc 10 Mg Tabs (Amlodipine besylate) ..... One tab. daily Aspirin 81 Mg Tabs (Aspirin) ..... One tab. daily Benicar Hct 20-12.5 Mg Tabs (Olmesartan medoxomil-hctz) ..... Po once daily Carvedilol 6.25 Mg Tabs (Carvedilol) ..... One tab. twice daily BP today: 95/57 Prior BP: 112/73 (07/16/2009) N uclear Stress Findings: Adenosine mediated myocardial perfusion study Normal left ventricular systolic function with a calculated ejection fraction of 74%. Myocardial scintigraphy demonstrates inferior wall ischemia. (07/29/2009) E chocardiogram: TDS. The left ventricular chamber size is normal. Mild concentric LVH. Normal left ventricular function. LV EF is estimated at 6 0%. Diastolic dysfunction. No evidence of MR, AR, TR, MT. O (12/18/2008) S tress Echo Findings: Negative Dobutamine echocardiogram. T est is negative by EKG criteria. B aseline echo was normal. (08/21/2008) C ardiac Cath: Severe single vessel coronary disease with 80% stenosis of the left circumflex. Moderate LV disease with 40-50% stenosis of the LAD and 40% of the RCA. EF 70%. Normal Renal arteries. [facility] (12/25/2008) C ardiac Cath Comments: Successful stenting of the left circumflex using a 3.5 x 20mm Liberte stent. [facility] (12/25/2008) H gb: 15.4 (12/18/2008) HCT: 42.0 (12/18/2008) RBC: 5.35 (12/18/2008) WBC: 6.7 (12/18/2008) B UN: 12 (12/18/2008) Creat: 1.07 (12/18/2008) Na+: 140 (12/18/2008) K+: 3.5 (12/18/2008) Cl: 104 (12/18/2008) SGOT (AST): 21 (12/18/2008) SGPT (ALT): 33 (12/18/2008) Timothy Jackson MD f/u: H is updated medication list for this problem includes: Norvasc 10 Mg Tabs (Amlodipine besylate) ..... One tab. daily Aspirin 81 Mg Tabs (Aspirin) ..... One tab. daily Benicar Hct 20-12.5 Mg Tabs (Olmesartan medoxomil-hctz) ..... Po once daily Carvedilol 6.25 Mg Tabs (Carvedilol) ..... One tab. twice daily BP today: 95/57 P rior BP: 112/73 (07/16/2009) & #13;Labs Reviewed: C reat: 1.07 (12/18/2008) C hol: 142 (12/18/2008) HDL: 58 (12/18/2008) LDL: 62 (12/18/2008) T (12/18/2008) Timothy Jackson MD routine: H is updated medication list for this problem includes: Norvasc 10 Mg Tabs (Amlodipine besylate) ..... One tab. daily Aspirin 81 Mg Tabs (Aspirin) ..... One tab. daily Plavix 75 Mg Tabs (Clopidogrel bisulfate) ..... Once daily Carvedilol 6.25 Mg Tabs (Carvedilol) ..... One tab. twice daily Timothy Jackson MD routine: H is updated medication list for this problem includes: Norvasc 10 Mg Tabs (Amlodipine besylate) ..... One tab. daily Aspirin 81 Mg Tabs (Aspirin) ..... One tab. daily Plavix 75 Mg Tabs (Clopidogrel bisulfate) ..... Once daily Carvedilol 6.25 Mg Tabs (Carvedilol) ..... One tab. twice daily BP today: 112/73 Prior BP: 164/103 (05/21/2009) S tress Echo Findings: Negative Dobutamine echocardiogram. T est is negative by EKG criteria. B aseline echo was normal. (08/21/2008) C arotid Doppler/Duplex: LESS THAN 50 % STENOSIS OF THE INTERNAL CAROTID A RTERIES BILATERALLY. (09/02/2008) A rterial Doppler (leg): NO EVIDENCE OF AN PSEUDOANEURYSM IN THE RIGHT GROIN. [facility] (12/27/2008) C HOL: 142 (12/18/2008) LDL: 62 (12/18/2008) HDL: 58 (12/18/2008) T (12/18/2008) H gb: 15.4 (12/18/2008) HCT: 42.0 (12/18/2008) RBC: 5.35 (12/18/2008) WBC: 6.7 (12/18/2008) B UN: 12 (12/18/2008) Creat: 1.07 (12/18/2008) Na+: 140 (12/18/2008) K+: 3.5 (12/18/2008) Cl: 104 (12/18/2008) Echocardiogram: TDS. The left ventricular chamber size is normal. Mild concentric LVH. Normal left ventricular function. LV EF is estimated at 60%. Diastolic dysfunction. No evidence of MR, AR, TR, MT. [facility] (12/18/2008) Timothy Jackson MD routine: H is updated medication list for this problem includes: Aspirin 81 Mg Tabs (Aspirin) ..... One tab. daily Plavix 75 Mg Tabs (Clopidogrel bisulfate) ..... Once daily Carotid Duplex Scan: L ESS THAN 50 % STENOSIS OF THE INTERNAL CAROTID A RTERIES BILATERALLY. (09/02/2008) Echocardiogram: T DS. The left ventricular chamber size is normal. Mild concentric LVH. Normal left ventricular function. LV EF is estimated at 6 0%. Diastolic dysfunction. No evidence of MR, AR, TR, MT. [facility]CO (12/18/2008) Timothy Jackson MD routine: H is updated medication list for this problem includes: Norvasc 10 Mg Tabs (Amlodipine besylate) ..... One tab. daily Aspirin 81 Mg Tabs (Aspirin) ..... One tab. daily Benicar Hct 20-12.5 Mg Tabs (Olmesartan medoxomil-hctz) ..... Po once daily Carvedilol 6.25 Mg Tabs (Carvedilol) ..... One tab. twice daily BP today: 112/73 P rior BP: 164/103 (05/21/2009) Labs Reviewed: C reat: 1.07 (12/18/2008) C hol: 142 (12/18/2008) HDL: 58 (12/18/2008) LDL: 62 (12/18/2008) T (12/18/2008) Timothy Jackson MD routine: H is updated medication list for this problem includes: Norvasc 10 Mg Tabs (Amlodipine besylate) ..... One tab. daily Aspirin 81 Mg Tabs (Aspirin) ..... One tab. daily Benicar Hct 20-12.5 Mg Tabs (Olmesartan medoxomil-hctz) ..... Po once daily Carvedilol 6.25 Mg Tabs (Carvedilol) ..... One tab. twice daily Timothy Jackson MD routine: O rders: A rterial Duplex Lower Extremity Bilateral (CPT-41646) V enous Doppler Bilateral LE (98256) Timothy Jackson MD routine: H is updated medication list for this problem includes: Norvasc 10 Mg Tabs (Amlodipine besylate) ..... One tab. daily Aspirin 81 Mg Tabs (Aspirin) ..... One tab. daily Benicar Hct 20-12.5 Mg Tabs (Olmesartan medoxomil-hctz) ..... Po once daily Carvedilol 6.25 Mg Tabs (Carvedilol) ..... One tab. twice daily BP today: 112/73 P rior BP: 164/103 (05/21/2009) Labs Reviewed: C reat: 1.07 (12/18/2008) C hol: 142 (12/18/2008) HDL: 58 (12/18/2008) LDL: 62 (12/18/2008) T (12/18/2008) Timothy Jackson MD routine: H is updated medication list for this problem includes: Norvasc 10 Mg Tabs (Amlodipine besylate) ..... One tab. daily Aspirin 81 Mg Tabs (Aspirin) ..... One tab. daily Benicar Hct 20-12.5 Mg Tabs (Olmesartan medoxomil-hctz) ..... Po once daily Carvedilol 6.25 Mg Tabs (Carvedilol) ..... One tab. twice daily BP today: 112/73 P rior BP: 164/103 (05/21/2009) Labs Reviewed: C reat: 1.07 (12/18/2008) C hol: 142 (12/18/2008) HDL: 58 (12/18/2008) LDL: 62 (12/18/2008) T (12/18/2008) Timothy Jackson MD routine: H is updated medication list for this problem includes: Norvasc 10 Mg Tabs (Amlodipine besylate) ..... One tab. daily Aspirin 81 Mg Tabs (Aspirin) ..... One tab. daily Plavix 75 Mg Tabs (Clopidogrel bisulfate) ..... Once daily Carvedilol 6.25 Mg Tabs (Carvedilol) ..... One tab. twice daily BP today: 112/73 Prior BP: 164/103 (05/21/2009) S tress Echo Findings: Negative Dobutamine echocardiogram. T est is negative by EKG criteria. B aseline echo was normal. (08/21/2008) C arotid Doppler/Duplex: LESS THAN 50 % STENOSIS OF THE INTERNAL CAROTID A RTERIES BILATERALLY. (09/02/2008) A rterial Doppler (leg): NO EVIDENCE OF AN PSEUDOANEURYSM IN THE RIGHT GROIN. [facility] (12/27/2008) C HOL: 142 (12/18/2008) LDL: 62 (12/18/2008) HDL: 58 (12/18/2008) T (12/18/2008) H gb: 15.4 (12/18/2008) HCT: 42.0 (12/18/2008) RBC: 5.35 (12/18/2008) WBC: 6.7 (12/18/2008) B UN: 12 (12/18/2008) Creat: 1.07 (12/18/2008) Na+: 140 (12/18/2008) K+: 3.5 (12/18/2008) Cl: 104 (12/18/2008) O rders: S tress Test - Nuclear (34148) Timothy Jackson MD post cath-stent: H is updated medication list for this problem includes: Norvasc 10 Mg Tabs (Amlodipine besylate) ..... One tab. daily Aspirin 81 Mg Tabs (Aspirin) ..... One tab. daily Plavix 75 Mg Tabs (Clopidogrel bisulfate) ..... Once daily Timothy Jackson MD post cath-stent: H is updated medication list for this problem includes: Norvasc 10 Mg Tabs (Amlodipine besylate) ..... One tab. daily Aspirin 81 Mg Tabs (Aspirin) ..... One tab. daily Plavix 75 Mg Tabs (Clopidogrel bisulfate) ..... Once daily BP today: 135/87 Prior BP: 139/91 (12/16/2008) S tress Echo Findings: Negative Dobutamine echocardiogram. T est is negative by EKG criteria. B aseline echo was normal. (08/21/2008) C arotid Doppler/Duplex: LESS THAN 50 % STENOSIS OF THE INTERNAL CAROTID A RTERIES BILATERALLY. (09/02/2008) A rterial Doppler (leg): NO EVIDENCE OF AN PSEUDOANEURYSM IN THE RIGHT GROIN. [facility] (12/27/2008) C HOL: 142 (12/18/2008) LDL: 62 (12/18/2008) HDL: 58 (12/18/2008) T (12/18/2008) H gb: 15.4 (12/18/2008) HCT: 42.0 (12/18/2008) RBC: 5.35 (12/18/2008) WBC: 6.7 (12/18/2008) B UN: 12 (12/18/2008) Creat: 1.07 (12/18/2008) Na+: 140 (12/18/2008) K+: 3.5 (12/18/2008) Cl: 104 (12/18/2008) Echocardiogram: TDS. The left ventricular chamber size is normal. Mild concentric LVH. Normal left ventricular function. LV EF is estimated at 6 0%. Diastolic dysfunction. No evidence of MR, AR, TR, MT. [facility] (12/18/2008) Timothy Jackson MD post cath-stent: H is updated medication list for this problem includes: Norvasc 10 Mg Tabs (Amlodipine besylate) ..... One tab. daily Aspirin 81 Mg Tabs (Aspirin) ..... One tab. daily B P today: 135/87 P rior BP: 139/91 (12/16/2008) Labs Reviewed: C reat: 1.07 (12/18/2008) C hol: 142 (12/18/2008) HDL: 58 (12/18/2008) LDL: 62 (12/18/2008) T (12/18/2008) Timothy Jackson MD office visit: H is updated medication list for this problem includes: Aspirin 81 Mg Tabs (Aspirin) ..... One tab. daily BP today: 139/91 Orders: E KG (CPT-49400) R enal Artery Duplex (CPT-45724) Timothy Jackson MD office visit: H is updated medication list for this problem includes: Metoprolol Succinate 25 Mg Tb24 (Metoprolol succinate) ..... One tab. daily Aspirin 81 Mg Tabs (Aspirin) ..... One tab. daily Orders: C ardiac Cath - GC (*) Timothy Jackson MD office visit: H is updated medication list for this problem includes: Metoprolol Succinate 25 Mg Tb24 (Metoprolol succinate) ..... One tab. daily Aspirin 81 Mg Tabs (Aspirin) ..... One tab. daily Orders: C ardiac Cath - GC (*) C omplete Echo (CPT-42249) Timothy Jackson MD office visit: H is updated medication list for this problem includes: Metoprolol Succinate 25 Mg Tb24 (Metoprolol succinate) ..... One tab twice a day Aspirin 81 Mg Tabs (Aspirin) ..... One tab. daily BP today: 139/91 Orders: E KG (CPT-61413) R enal Artery Duplex (CPT-51538) Timothy Jackson MD office visit: H is updated medication list for this problem includes: Aspirin 81 Mg Tabs (Aspirin) ..... One tab. daily Carotid Duplex Scan: L ESS THAN 50 % STENOSIS OF THE INTERNAL CAROTID A RTERIES BILATERALLY. 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 HEMOGLOBIN A1c LIPID PANEL Carotid Duplex Bilat eral Complete Echo LIPID PANEL STR - Nuclear Complete Echo Stress Test - Nuclea r Complete Echo Cardiac Cath - GC Stress Test - Nuclea r Spirometry Venous Doppler Bilat eral LE Arterial Duplex Lowe r Extremity Bilateral Complete Echo Cardiac Cath - GC Renal Artery Duplex HISTORY OF PROCEDURES Procedure Date Procedure Name Provider Procedure Notes S tatus EKG Timothy Jackson MD completed EKG Timothy Jackson MD completed EKG Timothy Jackson MD completed EKG Timothy Jackson MD completed EKG Timothy Jackson MD completed EKG Timothy Jackson MD completed SNOMED-CT: [id number] Current Medications Documented Timothy Jackson MD completed EKG Timothy Jackson MD completed SNOMED-CT: [id number] Current Medications Documented Timothy Jackson MD completed Schedule Followup Timothy Jackson MD 1 year com pleted SNOMED-CT: [id number] Current Medications Documented Timothy Jackson MD completed EKG Timothy Jackson MD completed EKG Timothy Jackson MD completed EKG Timothy Jackson MD completed ePrescribe - Check t his box if eRx is used Timothy Jackson MD completed EKG Timothy Jackson MD completed Lipid Strip Timothy Jackson MD completed KING Jackson MD completed KING Jackson MD completed KING Jackson MD completed
--- OUTSIDE RECORDS SUMMARY | 2025-01-26 07:06 | XMS_ITS | Data Portability ---
Author Organization [facility] Address [address] [place] [address] Care Team Providers Care Social Economist Name Role Phone VICKEY ELLISON Internal Medicine [phone] Assessment No assessment recorded. Plan of Treatment Reminders Order Date Submit Date Provider Last Modified By Organization Details Last Modified Time Details Appointments ANY 15 2024 10:30A M Vickey Ellison MD Not available Not available Not available Lab noninvasi ve colorecta l cancer DNA + occult blood screening , QL, stool 2023 024 [facility] (Cologuard Orders Only), [address], [address], [place], [address], 05/17/2024 19:15:23 PSA, total, serum or plasma 2023 024 [facility], [address], [address], [place], [address], 03/30/2024 13:14:43 noninvasi ve colorecta l cancer DNA + occult blood screening , QL, stool 2023 024 [facility] ([facility] Only), [address], [address], [place], [address], 04/11/2024 08:26:04 CMP, serum or plasma 2023 024 [facility], [address], [place], [address], 03/30/2024 13:14:41 lipid panel, serum 2023 024 [facility], [address], [place], [address], 03/30/2024 13:14:41 CBC 2023 [facility], [address], [place], [address], 03/30/2024 13:14:43 TSH, ultra-sen sitive, serum 2023 [facility], [address], [place], [address], 03/30/2024 13:14:42 Referral ophthalmo logist referral 2023 [facility], [address], [place], [address], 06/14/2024 13:15:00 Procedures None recorded. Surgeries None recorded. Imaging None recorded. Medication Orders amlodipin e 5 mg tablet 2023 [id number], [address], [place], [place], [id number], 03/15/2024 14:44:55 simvastat in 10 mg tablet 2023 [facility] #[id number], [address], [place], [place], [id number], 03/15/2024 14:44:52 Patient TargetsNo targets recorded. Patient Instructions Encounter Date Encounter Id Patient Instructions Last Modified By Organization Details Last Modified Time 12/20/2023 [id number] high cholesterol : care instructions [email or web address] Not available 12/20/2023 14:09:56 03/15/2024 [id number] learning about high blood pressure [email or web address] Not available 03/15/2024 14:44:45 high cholesterol : care instructions [email or web address] Not available 03/15/2024 14:44:45 05/16/2024 [id number] learning about high blood pressure [email or web address] Not available 05/16/2024 10:32:04 high cholesterol : care instructions [email or web address] Not available 05/16/2024 10:32:04 08/13/2024 [id number] A healthy lifestyle: care instructions [email or web address] Not available 08/13/2024 12:47:02 learning about high blood pressure Not available 08/13/2024 12:47:02 11/12/2024 [id number] When You Want to Lose Weight: Care Instructions [email or web address] Not available 11/12/2024 11:48:12 A healthy lifestyle: care instructions [email or web address] Not available 11/12/2024 11:48:12 learning about high blood pressure [email or web address] Not available 11/12/2024 11:48:12 high cholesterol : care instructions [email or web address] Not available 11/12/2024 11:48:12 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 Routine evaluation Referring Physician: Vickey Ellison, Internal Medicine, Encounter Date: 03/15/2024 Results Created Date Observation Date Name Description Value Unit Range Abnormal Flag Note LastModifiedBy Organization Detail LastModifiedTime 05/17/20 24 05/17/2024 COLOG UARD cologuard result Cancel led - Duplic ate Order not applic able Not Available [facility] (Cologuard Orders Only) [address], [place], [address], 05/17/2024 19:15:23 03/29/2003/30/2024 LIPID PANEL cholesterol, total 91 mg/dL 100-19 9 below low normal Not Available [facility] ([facility]) [address] [facility] [address], [place], [address], 03/30/2024 13:14:41 03/29/2003/30/2024 LIPID PANEL triglyceride s 60 mg/dL 0-149 Not Available [facility] ([facility]) [address] [facility], [place], [address], 03/30/2024 13:14:41 03/29/20 24 03/30/2024 LIPID PANEL HDL cholesterol 36 mg/dL >39 below low normal Not Available [facility] ([facility]) [address] [place], [address], 03/30/2024 13:14:41 03/29/20 24 03/30/2024 LIPID PANEL VLDL cholesterol varsha 14 mg/dL 5-40 Not Available [facility] ([facility]) [address] [place], [address], 03/30/2024 13:14:41 03/29/20 24 03/30/2024 LIPID PANEL LDL chol calc ([facility] [facility]) 41 mg/dL 0-99 Not Available [facility] ([facility]) [address] [place], [address], 03/30/2024 13:14:41 03/29/20 24 03/30/2024 COMP. METAB OLIC PANEL (14) glucose 89 mg/dL 70-99 Not Available [facility] ([facility]) [address] [place], [address], 03/30/2024 13:14:41 03/29/20 24 03/30/2024 COMP. METAB OLIC PANEL (14) BUN 14 mg/dL 8-27 Not Available [facility] ([facility]) [address] [place], [address], 03/30/2024 13:14:41 03/29/20 24 03/30/2024 COMP. METAB OLIC PANEL (14) creatinine 0.72 mg/dL 0.76-1 .27 below low normal Not Available [facility] ([facility]) [address] [place], [address], 03/30/2024 13:14:41 03/29/20 24 03/30/2024 COMP. METAB OLIC PANEL (14) eGFR 99 mL/mi n/1.7 3 >59 Not Available [facility] ([facility]) [address] [facility] [address], [place], [address], 03/30/2024 13:14:41 03/29/20 24 03/30/2024 COMP. METAB OLIC PANEL (14) BUN/creatini ne ratio 19 - Not Available [facility] ([facility]) [address], [place], [address], 03/30/2024 13:14:41 03/29/20 24 03/30/2024 COMP. METAB OLIC PANEL (14) sodium 142 mmol/ L 134-14 4 Not Available [facility] ([facility]) [address], [place], [address], 03/30/2024 13:14:41 03/29/20 24 03/30/2024 COMP. METAB OLIC PANEL (14) potassium 3.5 mmol/ L 3.5-5. 2 Not Available [facility] ([facility]) [address] [facility], [place], [address], 03/30/2024 13:14:41 03/29/20 24 03/30/2024 COMP. METAB OLIC PANEL (14) chloride 105 mmol/ L 96-106 Not Available [facility] ([facility]) [address] [facility], [place], [address], 03/30/2024 13:14:41 03/29/20 24 03/30/2024 COMP. METAB OLIC PANEL (14) carbon dioxide, total 22 mmol/ L 20-29 Not Available [facility] ([facility]) [address] [facility], [place], [address], 03/30/2024 13:14:41 03/29/20 24 03/30/2024 COMP. METAB OLIC PANEL (14) calcium 8.4 mg/dL 8.6-10 .2 below low normal Not Available [facility] ([facility]) [address] [facility], [place], [address], 03/30/2024 13:14:41 03/29/20 24 03/30/2024 COMP. METAB OLIC PANEL (14) protein, total 6.7 g/dL 6.0-8. 5 Not Available [facility] ([facility]) [address] [facility] [address], [place], [address], 03/30/2024 13:14:41 03/29/20 24 03/30/2024 COMP. METAB OLIC PANEL (14) albumin 4.1 g/dL 3.9-4. 9 Not Available [facility] ([facility]) [address] [place], [address], 03/30/2024 13:14:41 03/29/20 24 03/30/2024 COMP. METAB OLIC PANEL (14) globulin, total 2.6 g/dL 1.5-4. 5 Not Available [facility] ([facility]) [address] [facility] [place], [address], 03/30/2024 13:14:41 03/29/20 24 03/30/2024 COMP. METAB OLIC PANEL (14) A/G ratio 1.6 1.2-2. 2 Not Available [facility] ([facility]) [address] [facility] [place], [address], 03/30/2024 13:14:41 03/29/20 24 03/30/2024 COMP. METAB OLIC PANEL (14) bilirubin, total 1.5 mg/dL 0.0-1. 2 above high normal Not Available [facility] ([facility]) [address] [facility] [place], [address], 03/30/2024 13:14:41 03/29/20 24 03/30/2024 COMP. METAB OLIC PANEL (14) alkaline phosphatase 78 IU/L 44-121 Not Available [facility] ([facility]) [address] [facility] [place], [address], 03/30/2024 13:14:41 03/29/20 24 03/30/2024 COMP. METAB OLIC PANEL (14) AST (SGOT) 27 IU/L 0-40 Not Available [facility] ([facility]) [address] [place], [address], 03/30/2024 13:14:41 03/29/20 24 03/30/2024 COMP. METAB OLIC PANEL (14) ALT (SGPT) 35 IU/L 0-44 Not Available [facility] ([facility]) [address] [place], [address], 03/30/2024 13:14:41 03/29/20 24 03/30/2024 TSH TSH 0.894 uIU/m L 0.450- 4.500 Not Available [facility] ([facility]) [address] [place], [address], 03/30/2024 13:14:42 03/29/20 24 03/30/2024 PROST ATE-S PECIF IC AG prostate specific Ag 1.4 NG/mL 0.0-4. 0 Yosvany ECLIA metho dolog y. Accor ding to the Ameri can Urolo gical Assoc iatio n, Serum PSA shoul d decre ase and remai n at undet ectab le level s after radic al prost atect essie. The AUA defin es bioch emica l recur rence as an initi al PSA value 0.2 ng/mL or great er follo wed by a subse quent confi rmato ry PSA value 0.2 ng/mL or great er. Value s obtai chirag with diffe rent assay metho ds or kits canno t be used inter price eably . Resul ts canno t be inter prete d as absol [place] evide nce of the prese nce or absen ce of gillian brock disea se. Not Available [facility] ([facility]) [address] [place], [address], 03/30/2024 13:14:43 03/29/20 24 03/30/2024 CBC, PLATE LET, NO DIFFE RENTI AL WBC 5.6 x10e3 /uL 3.4-10 .8 Not Available [facility] ([facility]) [address] [facility], [place], [address], 03/30/2024 13:14:43 03/29/20 24 03/30/2024 CBC, PLATE LET, NO DIFFE RENTI AL RBC 4.50 x10e6 /uL 4.14-5 .80 Not Available [facility] ([facility]) [address] [facility], [place], [address], 03/30/2024 13:14:43 03/29/2003/30/2024 CBC, PLATE LET, NO DIFFE RENTI AL hemoglobin 13.6 g/dL 13.0-1 7.7 Not Available [facility] ([facility]) [address] [facility], [place], [address], 03/30/2024 13:14:43 03/29/20 24 03/30/2024 CBC, PLATE LET, NO DIFFE RENTI AL hematocrit 39.2 % 37.5-5 1.0 Not Available [facility] ([facility]) [address] [facility], [place], [address], 03/30/2024 13:14:43 03/29/20 24 03/30/2024 CBC, PLATE LET, NO DIFFE RENTI AL MCV 87 fL 79-97 Not Available [facility] ([facility]) [address] [place], [address], 03/30/2024 13:14:43 03/29/2003/30/2024 CBC, PLATE LET, NO DIFFE RENTI AL MCH 30.2 pg 26.6-3 3.0 Not Available [facility] ([facility]) [address] [place], [address], 03/30/2024 13:14:43 03/29/20 24 03/30/2024 CBC, PLATE LET, NO DIFFE RENTI AL MCHC 34.7 g/dL 31.5-3 5.7 Not Available [facility] ([facility]) [address] [facility], [place], [address], 03/30/2024 13:14:43 03/29/20 24 03/30/2024 CBC, PLATE LET, NO DIFFE RENTI AL RDW 13.9 % 11.6-1 5.4 Not Available [facility] ([facility]) [address] [facility], [place], [address], 03/30/2024 13:14:43 03/29/20 24 03/30/2024 CBC, PLATE LET, NO DIFFE RENTI AL platelets 129 x10e3 /uL 150-45 0 below low normal Not Available [facility] ([facility]) [address] [facility], [place], [address], 03/30/2024 13:14:43 04/09/20 24 04/09/2024 COLOG UARD cologuard result reportable Sample Could Not Be Proces sed n/a The speci men was not colle cted accor ding to the provi ded instr uctio ns. The patie nt will be conta cted to initi ate a new sampl e colle ction . Not Available [facility] (Cologuard Orders Only) [address], [place], [address], 04/11/2024 08:26:04 07/03/20 24 07/03/2024 XR, chest No observ ation record ed. [address] [place], [address], 07/07/2024 04:44:23 08/06/20 24 08/06/2024 XR, chest No observ ation record ed. [address] [place], [address], 08/08/2024 23:50:06 08/06/20 24 08/06/2024 CT, head, w/o contr ast No observ ation record ed. [email or web address] [facility] [address] [place], [address], 08/08/2024 23:50:06 Result Notes None recorded. Problems Name Problem SNOMED Code Status Onset Date Resolution Date Notes Provider Name and Address Organization Details Recorded Time Essential hypertensi on 96903242 Active 2023 Vickey Ellison MD Attn: Accounting ,[address] [facility], [place], [address] , [place] - [facility] 4 14:33:58 Screening for malignant neoplasm of colon Active 2023 Vickey Ellison MD Attn: Accounting ,[address] [place], [address] , [place] [facility] 4 14:40:49 Screening for malignant neoplasm of prostate Active 2023 Vickey Ellison MD Attn: Accounting ,[address] [place], [address] , [place] [facility] 4 14:41:17 Obesity 696897222 Active 2023 Vickey Ellison MD Attn: Accounting ,[address] [place], [address] , [place] [facility] 4 11:47:33 Acute low back pain 658038633 Completed 03/15/2024 Vickey Ellison MD Attn: Accounting ,[address] [place], [address] , [place] [facility] 4 14:39:27 Coronary atheroscle rosis 507683017 Active Not Available [facility] 3 16:05:06 Hyperlipid emia 70013274 Active Not Available [facility] 3 16:05:06 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 3 16:05:06 Problem Notes None recorded. Procedures Surgical History None recorded. Imaging Results Imaging Date Name Status LastModified by Organiz ation Details LastModified Time 07/03/2024 XR, chest completed [address] [place], [address], 07/07/2024 04:44:23 08/06/2024 XR, chest completed [address] [place], [address], 08/08/2024 23:50:06 08/06/2024 CT, head, w/o contrast completed [address] [place], [address], 08/08/2024 23:50:06 Procedure Notes None recorded. Medical Equipment None Reported. Allergies No known drug allergies Medications Name Sig Start Date Stop Date Status Note LastModified by Organization Details LastModified Time cyclobenzap rine 10 mg tablet Take 1 tablet twice a day by oral route as needed for 30 days. 08/21 completed Not Available Not Available Not Available prednisone 10 mg tablet 08/24 completed Not Available Not Available Not Available carvedilol 12.5 mg tablet TAKE 1 TABLET BY MOUTH TWICE DAILY DIRECTED active Not Available Not Available No t Available clindamycin HCl 300 mg capsule 07/04 completed Not Available Not Available Not Available triamcinolo ne acetonide 0.5 % topical cream APPLY TO AFFECTED AREA TWICE DAILY NEEDED 11/26 completed Not Available Not Available Not Available cetirizine 10 mg tablet Take 1 tablet every day by oral route as needed. 08/21 completed Not Available Not Available Not Available azithromyci n 250 mg tablet TAKE 2 TABLETS (500 MG) BY ORAL ROUTE ONCE DAILY FOR 1 DAY THEN 1 TABLET (250 MG) BY ORAL ROUTE ONCE DAILY FOR 4 DAYS 11/26 completed Not Available Not Available Not Available ibuprofen 800 mg tablet 07/04 completed Not Available Not Available Not Available benzonatate 200 mg capsule Take 1 capsule 3 times a day by oral route as needed for 10 days. 11/26 completed Not Available Not Available Not Available Keflex 500 mg capsule Take 1 capsule every 6 hours by oral route after meals for 7 days. 05/10 completed Not Available Not Available Not Available ondansetron HCl 4 mg tablet TAKE 1 TABLET BY MOUTH EVERY 8 HOURS 08/13 completed Not Available Not Available Not Available prednisone 20 mg tablet 08/21 completed Not Available Not Available Not Available simvastatin 10 mg tablet TAKE 1 TABLET BY MOUTH EVERY DAY 2024 active Not Available Not Available Not Avai lable permethrin 5 % topical cream THOROUGHL Y MASSAGE INTO SKIN FROM HEAD TO SOLES OF FEET AND LEAVE ON FOR 8 TO 14 HOURS, THEN WASH OFF 11/26 completed Not Available Not Available Not Available clindamycin HCl 150 mg capsule Take 2 capsules 3 times a day by oral route after meals for 7 days. 07/04 completed Not Available Not Available Not Available clopidogrel 75 mg tablet Take 1 tablet every day by oral route. 07/04 completed Not Available Not Available Not Available amlodipine 5 mg tablet TAKE 1 TABLET BY MOUTH EVERY DAY 2024 active Not Available Not Available Not Avai lable tramadol 50 mg tablet Take 1 tablet every 8 hours by oral route as needed for 10 days. 03/17 completed Not Available Not Available Not Available meloxicam 7.5 mg tablet Take 1 tablet every day by oral route for 30 days. 09/10 completed Not Available Not Available Not Available potassium chloride ER 20 mEq tablet,exte nded release(par t/cryst) 07/04 completed Not Available Not Available Not Available famotidine 20 mg tablet Take 1 tablet twice a day by oral route as directed for 30 days. 08/21 completed Not Available Not Available Not Available triamcinolo ne acetonide 0.1 % dental paste Take 1 applicati on twice a day by dental route as directed for 7 days. 11/26 completed Not Available Not Available Not Available benzonatate 100 mg capsule 08/21 completed Not Available Not Available Not Available oseltamivir 75 mg capsule Take 1 capsule every day by oral route for 7 days. 08/21 completed Not Available Not Available Not Available ibuprofen 400 mg tablet 08/21 completed Not Available Not Available Not Available hydrochloro thiazide 12.5 mg capsule TAKE 1 CAPSULE BY MOUTH EVERY DAY DIRECTED 2024 active Not Available Not Available Not Avai lable ibuprofen 200 mg tablet 05/09 completed Not Available Not Available Not Available gabapentin 300 mg capsule Take 1 capsule 3 times a day by oral route as directed for 30 days. 08/21 completed Not Available Not Available Not Available codeine 10 mg-guaifene sin 100 mg/5 mL oral liquid Take 10 mL every 6-8 hours by oral route as needed for 7 days. 03/17 completed Not Available Not Available Not Available ceftriaxone 500 mg solution for injection Take 500 mg as needed by injection route for 1 day. 03/17 completed Not Available Not Available Not Available aspirin 81 mg tablet Take 1 tablet every day by oral route. active Not Available Not Available No t Available ibuprofen 600 mg tablet 05/09 completed Not Available Not Available Not Available methylpredn isolone 4 mg tablets in a dose pack Take 1 dose pk every day by oral route after meals for 6 days. 11/26 completed Not Available Not Available Not Available losartan 50 mg-hydrochl orothiazide 12.5 mg tablet 02/17 completed dry cough ,. Not Available Not Available Not Available amoxicillin 875 mg-potassiu m clavulanate 125 mg tablet Take 1 tablet every 12 hours by oral route after meals for 7 days. 07/04 completed Not Available Not Available Not Available amoxicillin 500 mg-potassiu m clavulanate 125 mg tablet Take 1 tablet every 12 hours by oral route with meals for 7 days. 11/26 completed Not Available Not Available Not Available Benadryl 25 mg capsule Take 2 capsules as needed by oral route at bedtime for 7 days. 08/21 completed Not Available Not Available Not Available cyclobenzap rine 5 mg tablet 07/04 completed Not Available Not Available Not Available Tylenol 03/15 completed Not Available Not Available Not Available Artificial Tears (glycerin-p eg) 1 %-0.3 % eye drops Instill 1 drop in each eye as needed 4-5 times per day. 08/21 completed Not Available Not Available Not Available Chlorasepti c Max 15 mg-10 mg lozenges Take 1 lozenge every 2 hours by mucous route as needed. 08/21 completed Not Available Not Available Not Available Delsybandar Cough-Chest Congestion DM 5 mg-100 mg/5 mL oral liquid Take 20 mL every 4-6 hours by oral route as needed. 08/21 completed Not Available Not Available Not Available Motrin IB 200 mg capsule Take 2 capsules 3 times a day by oral route as needed for 30 days. 09/10 completed Not Available Not Available Not Available Paxlovid 300 mg (150 mg x 2)-100 mg tablets in a dose pack Take 3 tablets twice a day by oral route as directed for 5 days. 06/20 completed Not Available Not Available Not Available Vitals Date Recorded Body height Body mass index (BMI) Body weight Heart rate Oxygen saturation Oxygen saturation in Arterial blood by Pulse oximetry Systolic blood pressure Diastolic blood pressure Provider Name and Address Organization Details Last Updated DateTime 4 167.64 cm 31.8 kg/m2 59716.7 g 85 /min 98 % 98 % 130 mm[Hg] 77 mm[Hg] Nehal Marie MA [facility] 4 12:35:45 Date Recorded Body height Body mass index (BMI) Body weight Heart rate Body temperature Oxygen saturation Oxygen saturation in Arterial blood by Pulse oximetry Systolic blood pressure Diastolic blood pressure Provider Name and Address Organization Details Last Updated DateTime 4 167.64 cm 29.2 kg/m2 90720.2 2 g 64 /min 98 [degF] 98 % 98 % 142 mm[Hg] 80 mm[Hg] ZOHREH [facility] 4 14:21:10 Date Recorded Body height Body mass index (BMI) Body weight Oxygen saturation Oxygen saturation in Arterial blood by Pulse oximetry Heart rate Systolic blood pressure Diastolic blood pressure Provider Name and Address Organization Details Last Updated DateTime 4 167.64 cm 28.7 kg/m2 56975.4 4 g 98 % 98 % 64 /min 122 mm[Hg] 78 mm[Hg] Laura Gates MA [facility] 4 10:15:10 Date Recorded Body height Body mass index (BMI) Body weight Oxygen saturation Oxygen saturation in Arterial blood by Pulse oximetry Heart rate Systolic blood pressure Diastolic blood pressure Provider Name and Address Organization Details Last Updated DateTime 4 167.64 cm 30.8 kg/m2 09283.1 4 g 95 % 95 % 71 /min 129 mm[Hg] 78 mm[Hg] Dayna Mattson MA [facility] 4 12:07:03 Date Recorded Body height Body mass index (BMI) Body weight Systolic blood pressure Diastolic blood pressure Provider Name and Address Organization Details Last Updated DateTime 11/12/2024 167.64 cm 32 kg/m2 52095.29 g 118 mm[Hg] 80 mm[Hg] Dayna Mattson MA [facility] 4 11:20:49 Social History Question Answer Notes LastModified by Organizat ion Details LastModified Time Tobacco Smoking Status Never Smoker Kayla Barnett MA [facility] 07/09/2019 10:37:20 Do You Have An Advance Directive? No Information not available 07/09/2019 What Is Your Level Of Alcohol Consumption? None [email or web address] Information not available 11/18/2015 What Is Your Level Of Caffeine Consumption? Occasional Information not available 07/09/2019 How Much Tobacco Do You Chew? None Information not available 07/09/2019 What Type Of Diet Are You Following? REGULAR Information not available 07/09/2019 Which Illicit Or Recreational Drugs Have You Used? None Information not available 07/09/2019 Do You Or Have You Ever Used E-cigarettes Or Vape? Never Used Electronic Cigarettes Information not available 07/09/2019 Education 9 Information no t available 07/09/2019 What Is Your Occupation? Disabled Information not available 07/09/2019 Are There Any Guns Present In Your Home? No Information not available 07/09/2019 Hard Of Hearing Or Deaf In One Or Both Ears? Yes Information not available 07/09/2019 Legally Blind In One Or Both Eyes? Yes Right Eye Information not available 07/09/2019 Marital Status Informatio n not available 07/09/2019 What Was The Date Of Your Most Recent Tobacco Screening? 11/12/2024 [email or web address] Information not available 11/12/2024 Performs Monthly Self-breast Exam? No Information not available 07/09/2019 Seat Belts Used Routinely Yes Information not available 07/09/2019 Smoke Alarm In Home Yes Information not available 07/09/2019 Do You Or Have You Ever Used Smokeless Tobacco? Never Used Smokeless Tobacco Information not available 07/09/2019 How Much Tobacco Do You Smoke? No Information not available 07/09/2019 General Stress Level Medium Information not available 07/09/2019 Do You Use Sunscreen Routinely? Yes Information not available 07/09/2019 Has Tobacco Cessation Counseling Been Provided? No [email or web address] Information not available 03/15/2024 How Many Years Have You Smoked Tobacco? 0 Information not available 07/09/2019 Do You Or Have You Ever Used Any Other Forms Of Tobacco Or Nicotine? No [email or web address] Information not available 03/15/2022 Sex: Unknown Functional Status Question Answer Note LastModified by Organizat ion Details LastModified Time What is your exercise level? Occasional Information not available 07/09/2019 Mental Status None recorded. Family History Nothing Reported. Medical History Condition Response High Blood Pressure Y Stroke Y High Cholesterol Y Immunizations Vaccine Type Date Status Note Provider Nam e and Address Organization Details Recorded Time COVID-19 vaccine, vector-nr, rS-Ad26, PF, 0.5 mL 1 completed Not Available [facility] 03/27/2023 16:05:06 Influenza, split virus, quadrivalent, preservative 6 completed Not Available [facility] 12/08/2019 02:44:48 zoster recombinant 2 completed Dian Perez [place], [place] [facility] 06/20/2023 10:03:41 zoster recombinant 2 completed Dian Perez [place], [place] [facility] 06/20/2023 10:03:41 COVID-19, mRNA, LNP-S, PF, 100 mcg/0.5mL dose or 50 mcg/0.25mL dose 2 completed ZOHREH Dickinson, [place] [facility] 06/20/2023 10:03:41 COVID-19 vaccine, vector-nr, rS-Ad26, PF, 0.5 mL 1 completed Dian Perez [place] [facility] 06/20/2023 10:03:41 Influenza, split virus, quadrivalent, preservative 7 completed Not Available [facility] 12/08/2019 02:46:46 Influenza, split virus, quadrivalent, preservative 9 completed Not Available [facility] 12/08/2019 02:40:24 Influenza, split virus, quadrivalent, preservative 9 completed Not Available [facility] 12/08/2019 02:43:38 Influenza, split virus, quadrivalent, preservative 0 completed Jeb Cast[place], [place] [facility] 08/21/2020 10:32:12 pneumococcal polysaccharide PPV23 1 completed Jeb Cast[place] [facility] 08/05/2021 14:45:18 Influenza, split virus, quadrivalent, preservative 1 completed Jeb Cast[place] [facility] 08/05/2021 15:37:04 Tdap 2 completed Jeb Cast[place] [facility] 06/14/2022 11:05:05 Influenza, split virus, quadrivalent, preservative 2 completed Jeb Cast[place] [facility] 08/19/2022 12:45:55 Influenza, high-dose, quadrivalent, PF 3 completed Nehal Marie [place] [facility] 08/26/2023 16:20:12 Past Encounters Encounter ID Performer Location Encounter Start Date Encounter Closed Date Diagnosis/Indication Diagnosis SNOMED-CT Code Diagnosis ICD10 Code Diagnosis Note [id number] Anay Damon MD [facility] (Adult Med) [address] [place] [address] [id number] 0 11/18/2015 10:38:22 11/18/2015 12:11:08 Acute low back pain 538385829 M54.5 Coronary atherosclerosis 366120893 I25.83 Hyperlipidemia 27440833 E78.5 History of cerebrovascular accident 818449132 Z86.73 Blind right eye 62035329 0 H54.41 History of hypertension 510865607 Z86.79 [id number] [facility] [address] [place] [address] [id number] 0 12/30/2015 09:45:48 12/31/2015 10:37:15 Acute low back pain 632753223 M54.5 Blind right eye 85720475 0 H54.41 Coronary atherosclerosis 257649978 I25.83 History of cerebrovascular accident 386408501 Z86.73 History of hypertension 106148991 Z86.79 Hyperlipidemia 35691181 E78.5 [id number] [facility] [address] [place] [address] [phone] 0 02/24/2016 15:01:54 02/26/2016 10:29:08 Acute bronchitis 12691024 J20.9 Blind right eye 19311121 0 H54.41 Coronary atherosclerosis 682555978 I25.83 History of cerebrovascular accident 546435320 Z86.73 History of hypertension 655554159 Z86.79 Hyperlipidemia 70376057 E78.5 [id number] MD Bakari Vela (Adult Med) [address] [place] [address] [id number] 0 03/03/2016 14:29:15 03/03/2016 15:31:11 Open wound of finger 885792690 S61.203A [id number] MD Bakari Vela (Adult Med) [address] [place] [address] [id number] 0 03/09/2016 15:59:32 03/09/2016 16:46:12 Open wound of finger 137478669 S61.203A Coronary atherosclerosis 525075640 I25.83 History of cerebrovascular accident 756991395 Z86.73 History of hypertension 384733129 Z86.79 Blind right eye 56724694 0 H54.41 [id number] Kasi Villegas (Adult Med) [address] [place] [address] [id number] 0 03/16/2016 09:51:42 03/16/2016 10:36:47 Open wound of finger 034488608 S61.203A Hyperlipidemia 52283356 E78.5 History of hypertension 495832063 Z86.79 History of cerebrovascular accident 982617487 Z86.73 Coronary atherosclerosis 498968110 I25.83 Blind right eye 27142147 0 H54.41 [id number] Iliana Villegas (Adult Med) [address] [place] [address] [id number] 0 03/24/2016 16:06:32 03/24/2016 17:02:39 Open wound of finger 500867508 S61.203A History of hypertension 188067861 Z86.79 History of cerebrovascular accident 362574165 Z86.73 Coronary atherosclerosis 501073782 I25.83 Blind right eye 93077673 0 H54.41 [id number] MD Bakari Vela (Adult Med) [address] [place] [address] [id number] 0 04/01/2016 16:10:20 04/01/2016 18:07:33 Cellulitis of finger 10023647 L03.896 [id number] [facility] [address] [place] [address] [id number] 0 09/24/2016 09:52:08 01/24/2017 13:21:54 [id number] ZOHREH Santillan (Adult Med) [address] [place] [address] [id number] 0 09/28/2016 10:11:09 10/01/2016 13:05:17 Administration of influenza vaccine 98900605 Z23 [id number] [facility] [address] [place] [address] [id number] 0 02/17/2017 10:19:57 02/17/2017 11:48:03 Blind right eye 554649363 H54.41 Since he had stroke. Coronary atherosclerosis 958645410 I25.[address] Hyperlipidemia 15269150 E78.5 On simvastati n. Low saturated fat diet. Exercise. Essential hypertension 70645903 I10 History of cerebrovascular accident 565323029 Z86.73 Right hemiparesis 160709 009 G81.90 Dry cough 44965177 R05 [id number] Anay Damon MD [facility] (Adult Med) [address] [place] [address] [id number] 0 03/17/2017 11:43:26 03/17/2017 12:46:34 Essential hypertension 33899357 I10 Hyperlipidemia 85934296 E78.5 On simvastati n. Low saturated fat diet. Exercise. Coronary atherosclerosis 907939095 I25.[address] [id number] Anay Damon MD [facility] (Adult Med) [address] [place] [address] [phone] 08/22/2017 15:59:12 08/22/2017 17:56:17 Acute sinusitis 84354689 J01.90 [id number] [facility] [address] [place] [address] [id number] 0 08/29/2017 10:22:38 08/29/2017 13:43:00 Administration of influenza vaccine 73581842 Z23 [id number] Anay Damon MD [facility] (Adult Med) [address] [place] [address] [id number] 0 04/04/2018 15:48:11 04/04/2018 16:55:26 Acute pharyngitis 048588683 J02.9 Avoid closing contact such as: sharing food, drinking, or kissing. [id number] [facility] [address] [place] [address] [phone] 0 07/04/2018 09:17:51 07/04/2018 10:32:45 Spinal stenosis of lumbar region 96735789 M48.062 CAT scan showed L4 and L4-5 stenosis. He is advised to avoid lifting or bending or heavy caring, He declines the walking cane and back brace. Heating/co ld pad as needed. [id number] MD Bakari Vela (Adult Med) [address] [place] [address] [id number] 0 08/24/2018 14:25:57 08/24/2018 16:48:50 Infestation by Sarcoptes scabiei cristy hominis 696145593 B86 [id number] MD Bakari Vela (Adult Med) [address] [place] [address] 0 09/21/2018 09:22:11 09/27/2018 11:04:08 Hyperlipidemia 04956465 E78.5 On simvastati n. Low saturated fat diet. Exercise. Coronary atherosclerosis 255812299 I25.[address] [id number] MD Bakari Vela (Adult Med) [address] [place] [address] [id number] 0 05/09/2019 15:09:41 05/10/2019 09:30:22 Cervical radiculopathy 79130320 M54.12 Discussed with patient, he declines the PT. [id number] MD Bakari Vela (Adult Med) [address] [place] [address] [phone] 0 07/09/2019 10:06:43 07/09/2019 11:02:04 Coronary atherosclerosis 034899786 I25.[address] Hyperlipidemia 47311060 E78.5 On simvastati n. Low saturated fat diet. Exercise. Chronic neck pain 446020 0391 107 M54.2 [id number] MD Bakari Vela (Adult Med) [address] [place] [address] [id number] 0 09/10/2019 11:48:14 09/11/2019 09:42:49 Coronary atherosclerosis 077652368 I25.[address] Hyperlipidemia 77556447 E78.5 On simvastati n. Low saturated fat diet. Exercise. Blind right eye 60289819 0 H54.61 Stable. Acute low back pain 2788 22498 M54.5 Resolving. Cervical radiculopathy 72084742 M54.12 Discussed with patient, he declines the PT. Essential hypertension 27633299 I10 Low salt diet. Administra tion of influenza vaccine 19665094 Z23 Not sick today. He tolerated short well. [id number] CECILLE DUGGAN (DYE CAN OPERATOR) [address] [place] [address] 0 01/25/2020 14:10:00 01/25/2020 15:34:05 Acute upper respiratory infection 02281752 J06.9 Instructed to take medication as directed. Reassured and educated pt to stay hydrated and rest. Tylenol or Advil as needed for fevers/joe n. RTC if symptoms worsen or begin to resolve within two weeks. Exposure t o Influenzavirus 391170484 Z20.828 Rapid flu negative. Since pt is 64 years old living in a senior citizen facility with known exposure to influenza, will initiate antiviral chemoproph ylaxis with oral oseltamivi r per CDC guidelines . 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 Eyes injected on exam and pt endorses irritation . Will start artificial tears. Advised to follow up with PCP. [id number] MD Bakari Vela (Adult Med) [address] [place] [address] [phone] 0 08/21/2020 09:03:38 08/26/2020 18:17:45 Administration of influenza vaccine 69283514 Z23 Not sick today. He tolerated short well. Coronary atherosclerosis 010329493 I25.[address]. On carvedilol , and aspirin. Hyperlipidemia 09474986 E78.5 On simvastati n. Low saturated fat diet. Exercise. on simvastati n. [id number] MD Bakari Vela (Adult Med) [address] [place] [address] [id number] 0 02/19/2021 08:38:07 02/20/2021 10:51:09 Coronary atherosclerosis 381825342 I25.[address] On carvedilol , and aspirin. Hyperlipidemia 33153790 E78.5 On simvastati n. Low saturated fat diet. Exercise. on simvastati n. Pruritic disorder 735902 002 L29.9 Controlled by cra as prescribed . [id number] ZOHREH Santillan (Adult Med) [address] [place] [address] [id number] 0 08/05/2021 14:09:29 08/10/2021 10:09:56 Administration of influenza vaccine 38214875 Z23 Not sick today. He tolerated short well. Administra tion of pneumococcal vaccine 29922561 Z23 [id number] MD Bakari Vela (Adult Med) [address] [place] [address] 91379-654 0 12/14/2021 16:33:14 12/15/2021 09:37:28 Pruritic disorder 785776277 L29.9 Controlled by cram as prescribed . [id number] Anay Damon MD [facility] (Adult Med) [address] [place] [address] [id number] 0 03/15/2022 14:31:22 03/16/2022 09:04:24 Blind right eye 069666032 H54.61 Stable. Coronary atherosclerosis 354587048 I25.[address] On carvedilol , and aspirin. Hyperlipidemia 71475045 E78.5 On simvastati n. Low saturated fat diet. Exercise. on simvastati n. Essential hypertension 36791995 I10 Low salt diet. [id number] ZOHREH Santillan (Adult Med) [address] [place] [address] 87118-515 0 06/14/2022 10:08:50 06/15/2022 12:02:05 Blind right eye 470445354 H54.61 Stable. Coronary atherosclerosis 751680246 I25.[address] On carvedilol , and aspirin. Hyperlipidemia 58037551 E78.5 On simvastati n. Low saturated fat diet. Exercise. on simvastati n. Administra tion of diphtheria, pertussis, and tetanus vaccine 643812345 Z23 He tolerated shot well. Also had covid booster. [id number] MD Bakari Vela (Adult Med) [address] [place] [address] [phone] 0 07/19/2022 10:44:48 07/20/2022 08:46:11 Acute laryngitis 6827399 J04.0 Discussed with patient, he agreed to try med as ordered. Go to ER any time for any concern he is sore advised. , He agreed. [id number] MD Bakari Vela (Adult Med) [address] [place] [address] 81363-744 0 08/03/2022 11:24:20 08/04/2022 11:44:16 Aphthous ulcer of mouth 137766611 K12.0 superficia l ulcer on the left tongue for 1 week , sore radiating to the left mouth , jaw and neck., no enlarged lymph node, no fever. Discussed with patient he agreed to try med as ordered. Will wait until ulcer heals up , then will consider annual flu shot, he will keep this office informed. [id number] Jeb Castano MA [facility] (Adult Med) [address] [place] [address] 11670-816 0 08/19/2022 12:23:32 08/20/2022 10:45:17 Administration of influenza vaccine 28678928 Z23 Not sick today. He tolerated short well. [id number] MD Bakari Vela (Adult Med) [address] [place] [address] [id number] 0 09/15/2022 09:41:07 09/16/2022 12:23:10 Acute bronchitis 16599073 J20.9 Discussed with patient , he agreed for the med as ordered. [id number] Anay Damon MD [facility] (Adult Med) [address] [place] [address] 22910-766 0 11/26/2022 13:45:38 11/29/2022 13:43:51 Obesity 222749563 E66.9 Exposure t o SARS-CoV-2 064736000 Z20.822 He exposed to some one with positive covid , will send him to [facility] [place] [place] [facility] for covid test first, ,He agreed, He has respirator y symptoms. [id number] MD Bakari Vela (Adult Med) [address] [place] [address] [phone] 0 06/20/2023 09:53:31 06/22/2023 08:43:33 Blind right eye 366570039 H54.61 Stable. Coronary atherosclerosis 851961244 I25.[address] On carvedilol , and aspirin. Hyperlipidemia 34091977 E78.5 On simvastati n. Low saturated fat diet. Exercise. on simvastati n. Colon canc er screening declined 4587632994 9109 Z53.20 He declined 06-20-23,. [id number] MD Bakari Vela (Adult Med) [address] [place] [address] 98023-501 0 08/25/2023 12:04:58 08/30/2023 12:41:09 [id number] MD Bakari Vela (Adult Med) [address] [place] [address] [phone] 0 12/20/2023 12:15:46 12/22/2023 12:02:59 Hyperlipidemia 69158212 E78.5 On simvastati n. Low saturated fat diet. Exercise. on simvastati n. Coronary atherosclerosis 281474374 I25.[address] On carvedilol , and aspirin. [id number] MD Bakari Covarrubias (Adult Med) [address] [place] [address] 90799-826 0 03/15/2024 13:58:03 03/16/2024 08:25:04 Essential hypertension 42606302 I10 Coronary atherosclerosis 136372834 I25.83 F/U with cardiology Hyperlipidemia 19315972 E78.5 Blind right eye 04507965 0 H54.61 Advised pt to see ophthalmol ogist regularly Screening for malignant neoplasm of colon 254780211 Z12.11 Screening for malignant neoplasm of prostate 735743655 Z12.5 [id number] MD Bakari Covarrubias (Adult Med) [address] [place] [address] 49182-596 0 05/16/2024 09:40:29 05/19/2024 08:15:01 Coronary atherosclerosis 414312888 I25.83 F/U with cardiology Essential hypertension 65871940 I10 Hyperlipidemia 30665110 E78.5 Screening for malignant neoplasm of colon 133422395 Z12.11 Repeat needed [id number] MD Bakari Covarrubias (Adult Med) [address] [place] [address] [phone] 0 08/13/2024 11:41:35 08/14/2024 12:59:12 Obesity 322673570 E66.8 Essential hypertension 66501009 I10 Blind right eye 79032358 0 H54.61 F/U ophthalmol ogy as scheduled [id number] Vickey Ellison MD [facility] (Adult Med) [address] [place] [address] 11/12/2024 10:46:49 11/13/2024 14:08:38 Essential hypertension 46652443 I10 Cont current meds Hyperlipidemia 35311004 E78.5 Coronary atherosclerosis 950257990 I25.83 F/U with cardiology Obesity 783989236 E66.9 Health Concerns Section Related Observation LastModified by Organization Detai ls LastModified Time None Recorded Concern Status LastModified by Organization Details LastModified Time None Recorded Advance Directives Directive N: Payers Encounter Date Sequence Insurance Name Policy Number Policy Turner Covered Member ID Turner Member ID Guarantor Name 12/20/2023 1 [facility] (MEDICAID HMO) [id number] Jose Miguel Emma [id number] [facility] 03/15/2024 1 [facility] (MEDICAID HMO) [id number] Jose Miguel Emma [id number] Jose Miguel Emma 05/16/2024 1 [facility] (MEDICAID HMO) [id number] Jose Miguel Emma [id number] Jose Miguel Emma 08/13/2024 1 [facility] (MEDICAID HMO) [id number] Jose Miguel Emma [id number] Jose Miguel Emma 11/12/2024 1 [facility] (MEDICAID HMO) [id number] 0003 Jose Miguel Emma [id number] Jose Miguel Emma Notes Date Note Type Note Provider Name and Address Organization Details Recorded Time 12/20/2023 text/html Office visit, NK DA. Check up. he has enough med refills on time, no chest pain, no shortness of breath, no fever, regular appetite, and bowel habit, ROS as noted in HPI. He said this year he had vaccinations of pneumonia, covid and annual influenza . Anay Damon MD Attn: Accounting[address] [facility], [place], [address], [facility] 12/20/2023 14:10:26 03/15/2024 text/html Here for routine BP check. Vickey Ellison MD Attn: Accounting[address] [facility], [place], [address], [place] [facility] 03/15/2024 14:46:24 05/16/2024 text/html Here for BP chec k up. Doing well Vickey Ellison MD Attn: Accounting,[address], [place], [address], [place] [facility] 05/16/2024 10:32:30 08/13/2024 text/html F/U from ED visi t for right sided headaches. Referred back to ophthalmology. He has been referred to [facility] ophthalmology Vickey Ellison MD Attn: Accounting,[address], [place], [address], [place] [facility] 08/13/2024 12:47:06 11/12/2024 text/html Here for f/u. Do ing better since last OV Vickey Ellison MD Attn: Accounting,[address], [place], [address], [place] [facility] 11/12/2024 11:48:39
[2025-01-26 07:32] LABS: Basophils Percent Auto 0.1 % (0.2-1.2); Eosinophils Absolute Auto 0.2 K/mm3 (0-0.3); Eosinophils Percent Auto 3.1 % (0-4.4); Hematocrit 42.5 % (42.0-52.0); Immature Granulocyte Absolute 0.03 K/mm3 (0.00-0.031); Immature Granulocyte Percent A 0.4 % (0-0.5); Lymphocytes Percent Auto 30.7 % (18.3-44.2); Mean Corpuscular HGB Conc 35.3 g/dl (32-36); Mean Corpuscular Hemoglobin 30.1 pg (26-34); Mean Corpuscular Volume 85.3 fl (80-100); Mean Platelet Volume 10.2 fl (7.4-10.4); Monocytes Absolute Auto 0.7 K/mm3 (0.1-0.6); Monocytes Percent Auto 10.2 % (2.6-8.5); Neutrophils Absolute Auto 3.8 K/mm3 (1.3-6.7); Neutrophils Percent Auto 55.5 % (45.5-73.1); Platelet Count Result 147 k/mm3 (150-375); Red Blood Count 4.98 M/mm3 (4.6-6.20); Red Cell Distribution Width 12.8 % (11.5-14.5); White Blood Count 6.8 K/mm3 (4.5-10.0)
[2025-01-26 07:42] LABS: Alanine Aminotransferase 45 U/L (6-50); Albumin Level 4.2 g/dL (3.5-5.1); Alkaline Phosphatase 69 U/L (38-126); Anion Gap 8 mmol/L (4-12); Aspartate Amino Transferase 33 U/L (17-59); Bilirubin,Total 1.7 mg/dL (0.2-1.3); Blood Urea Nitrogen 22 mg/dL (9-20); Calcium 8.7 mg/dL (8.4-10.2); Carbon Dioxide 25 mmol/L (22-30); Chloride 107 mmol/L (98-107); Cholesterol 90 mg/dL (0-200); Estimated Glomerular Filt Rate > 60; Glucose 107 mg/dL (65-110); HDL Direct 30 mg/dL; Magnesium 1.8 mg/dL (1.6-2.3); Potassium 3.8 mmol/L (3.4-5.0); Sodium 140 mmol/L (137-145); Triglycerides 76 mg/dL (<150)
[2025-01-26 07:53] LABS: LDL Cholesterol Direct 35 mg/dL
== END 2025-01-26 07:01 | disposition home or self-care (01) ==
PROVIDERS: PCP Internal Medicine Gastroenterology; Visit Provider Internal Medicine Cardiovascular Disease
DX: E78.5 Hyperlipidemia, unspecified (principal)
CPT/HCPCS: 36415; 80053; 80061; 83735; 84443; 85025

== ENCOUNTER 2025-04-08 06:46 | Outpatient (CLI) | payer MEDICARE, SELFPAY ==
--- NOTE | ~2025-04-08 | NM_ITS ---
EXAMINATION: NM stress w perf spect multi DATE: 04/08/2025 09:38 INDICATION: Left upper arm pain TECHNIQUE: Rest images were obtained following intravenous administration of 12.3 mCi Tc99m tetrofosm in (Jocoos). The patient performed an exercise activity. At peak exercise, 35 mCi Tc99m tetrofosmin (Myoview) was administered intravenously, and stress images were obtained. Data was reconstructed int o short axis and horizontal and vertical long axis SPECT images. Gated SPECT images were also obtaine d. COMPARISON: None. FINDINGS: There is normal left ventricular perfusion without definite evidence of reversible or fixed perfusion abnormality to suggest ischemia or infarction. There is normal left ventricular chamber size, wall motion and ejection fraction. Left ventricular ejection fraction measures >70%. IMPRESSION: 1. Normal myocardial perfusion at rest and during stress. 2. Left ventricular ejection fraction measuring >70%. Reviewed, dictated and finalized at location A.
--- OUTSIDE RECORDS SUMMARY | 2025-04-08 06:48 | XMS_ITS | CONTINUITY OF CARE DOCUMENT ---
Author Name roquenathanshantell Address Unknown Organization [facility] Address [address] [place] [address] Phone [phone] Care Team Providers Care Lens Examiner Name Role Phone Manuel ROMERO, Timothy Shrestha Unavailable [phone] OVIDIO ROMERO, AMIE Unavailable [phone] SCOT ROMERO, JONH Virgen Unavailable [phone] PROBLEMS Condition Status Date Provider Notes CVA [...] In-person encounter Office Visit Timothy Jackson MD [facility] - In-person encounter Office Visit Timothy Jackson MD [facility] - In-person encounter Office Visit Timothy Jackson MD [facility] - In-person encounter Office Visit Timothy Jackson MD [facility] - In-person encounter Office Visit Timothy Jackson MD [facility] PALPITATIONS-08/28 HOLTER SRCHEST PAIN-12/30 STENT LIBERTE L CIRCSHORTNESS OF BREATH-06/29 SPIROMETRY MOD SEV OBSFatigue - In-person encounter Office Visit Timothy Jackson MD [facility] - In-person encounter Office Visit Timothy Jackson MD [facility] CVAUpper Airway Resistance Syndrome - In-person encounter Office Visit Timothy Jackson MD [facility] HTNLEG PAIN - 9 NIMCO DOP NEG - 2/09 LOW EXT NEGPVD-07/30 YODIT NLCAD - 07/30 CATH 50% ISS L CIRC EF 70Carotid artery stenosis, <50% ICA b/lUpper Airway Resistance SyndromeObesity - In-person encounter Office Visit Timothy Jackson MD [facility] HTNLEG PAIN - 07/30 NIMCO DOP NEG - 2/09 LOW EXT NEGCAD - 9 CATH 50% ISS L CIRC EF 70 - In-person encounter Office Visit Timothy Jackson MD [facility] - In-person encounter Office Visit Timothy Jackson MD [facility] - In-person encounter Office Visit Timothy Jackson MD [facility] Hypercholesterolemia - In-person encounter Office Visit Timothy Jackson MD [facility] - In-person encounter Office Visit Timothy Jackson MD [facility] - In-person encounter Office Visit Timothy Jackson MD [facility] - In-person encounter Office Visit Timothy Jackson MD [facility] - In-person encounter Office Visit Timothy Jackson MD [facility] - In-person encounter Office Visit Timothy Jackson MD [facility] - In-person encounter Office Visit Timothy Jackson MD [facility] HTN - In-person encounter Office Visit Timothy Jackson MD [facility] SHORTNESS OF BREATH-06/29 SPIROMETRY MOD SEV OBS - In-person encounter Office Visit Negro Gonzalez MD [facility] - In-person encounter Office Visit Timothy Jackson MD [facility] LEG PAIN - 07/30 NIMCO DOP NEG - 12/30 LOW EXT NEG - In-person encounter Office Visit Timothy Jackson MD [facility] CVAHTNCHEST PAIN-12/30 STENT LIBERTE L CIRC [...] Body Mass Index (Ratio) 31.28 kg/m2 [facility], cuff size regular Jeremy Welshby blood pressure, diastolic 70 mm[Hg] Jeremy Welshby blood pressure, systolic 140 mm[Hg] Adali Welshby pulse rate 62 /min Cecile Welshby oxygen saturation, oximetry 97 % Cecile Welshby respiratory rate E&M 19 /min Cecile Welshby weight E&M 193.8 [lb_av] Cecile Welshby height E&M 66 [in_i] Cecile Welshby Body Mass Index (Ratio) 31.95 kg/m2 Juan tineo [facility] blood pressure, diastolic 87 mm[Hg] Elia mares Pickett blood pressure, systolic 139 mm[Hg] Adelina dedrick Pickett blood pressure, cuff size regular Elia mares Pickett pulse rate 76 /min Ever Cardenas jazmín respiratory rate E&M 16 /min Hyacinth Pickett oxygen saturation, oximetry 97 % Hyacinth Pickett weight E&M 198 [lb_av] Hyacinth Yobanybel l height E&M 66 [in_i] Hyacinth Campbel l Body Mass Index (Ratio) 28.73 kg/m2 Juan tineo [facility] blood pressure, diastolic, left arm 70 mm [Hg] Cristal Whitehead blood pressure, systolic, left arm 130 mm [Hg] [facility] blood pressure, diastolic, right arm 70 m m[Hg] [facility] blood pressure, systolic, right arm 120 m m[Hg] [facility] blood pressure, diastolic 70 mm[Hg] Katrin lopez blood pressure, systolic 130 mm[Hg] Soledad rae oxygen saturation, oximetry 98 % [facility] respiratory rate E&M 16 /min [facility] pulse rate 70 /min [facility] weight E&M 178 [lb_av] [facility] height E&M 66 [in_i] [facility] Body Mass Index (Ratio) 27.60 kg/m2 Juan [...] respiratory rate E&M 17 /min Aneatri s [facility] weight E&M 215 [lb_av] Asuncionatris Julio [...] Mass Index (Ratio) 32.56 kg/m2 Constantino cummings Mooer blood pressure, diastolic, left arm 106 m m[Hg] [facility] blood pressure, systolic, left arm 161 mm [Hg] [facility] blood pressure, diastolic, right arm 101 mm[Hg] [facility] blood pressure, systolic, right arm 157 m m[Hg] [facility] blood pressure, diastolic 106 mm[Hg] Richards Moore blood pressure, systolic 161 mm[Hg] Thiago tristan Kimberly pulse rate 78 /min [facility] oxygen saturation, oximetry 98 % [facility] respiratory rate E&M 16 /min [facility] weight E&M 201 [lb_av] Thiagotristan Moore Body Mass Index (Ratio) 35.64 kg/m2 Tere Portillo blood pressure, diastolic 96 mm[Hg] Mathew Portillo blood pressure, systolic 132 mm[Hg] Tim Portillo pulse rate 75 /min Angie Carlos segundoer oxygen saturation, oximetry 98 % Angie Bandar respiratory rate E&M 17 /min Angie G young weight E&M 220 [lb_av] Angie Carlos segundoer blood pressure, diastolic, left arm 102 m m[Hg] Pavan Palomo RN blood pressure, systolic, left arm 149 mm [Hg] Pavan Palomo RN blood pressure, diastolic, right arm 94 m m[Hg] Pavan Palomo RN blood pressure, systolic, right arm 150 m m[Hg] Pavan Palomo RN blood pressure, diastolic 102 mm[Hg] Jose Luis Palomo RN blood pressure, systolic 149 mm[Hg] Paavn Palomo RN pulse rate 77 /min Pavan [...] pressure, systolic, left arm 96 mm[ Hg] [facility] blood pressure, diastolic, right arm 51 m m[Hg] [facility] blood pressure, systolic, right arm 98 mm [Hg] [facility] blood pressure, diastolic 51 mm[Hg] Sherwin rey Patricia blood pressure, systolic 98 mm[Hg] Costa suresh Persia pulse rate 80 /min Jesenia Persia oxygen saturation, oximetry 94 % [facility] respiratory rate E&M 16 /min [facility] weight E&M 201 [lb_av] Jeseniasuresh Patricia blood [...] pressure, diastolic, right arm 65 m m[Hg] [facility], systolic, right arm 102 m m[Hg] [facility], diastolic 65 mm[Hg] Sravani klein [place] blood pressure, systolic 102 mm[Hg] Selwyn klein Mccuneaco pulse rate 80 /min [facility], oximetry 98 % [facility] respiratory rate E&M 16 /min [facility] weight E&M 185.5 [lb_av] Benjamin Mccuneacop blood pressure, diastolic 57 mm[Hg] Jose Luis [...] as % of total hemoglobin 5.0 % [facility] LDL cholesterol, serum 62 mg/dL [facility] triglyceride, serum, fasting 143 mg/dL Pavan [...] Jennie Graham RN chloride, serum 102 mmol/L [facility] potassium, serum 4.2 mmol/L [facility] sodium, serum 136 mmol/L [facility] platelet count 162 10*3/uL [facility] hematocrit, blood 35.8 % [facility] hemoglobin, blood 12.8 g/dL [facility] leukocyte count, blood 6.2 10*3/mm3 [facility] triglyceride, serum, fasting 110 mg/dL [facility] HDL cholesterol, serum 58 mg/dL [facility] LDL cholesterol, serum 62 mg/dL [facility] cholesterol, serum 142 mg/dL [facility] alanine aminotransferase (SGPT), serum 33 1/L [facility] aspartate aminotransferase (SGOT), serum 21 1/L [facility] creatinine, serum 1.07 mg/dL [facility] urea nitrogen, blood 12 mg/dL [facility] carbon dioxide, serum, total 31 mmol/L [facility] chloride, serum 104 mmol/L [facility] potassium, serum 3.5 mmol/L [facility] sodium, serum 140 mmol/L [facility] platelet count 173 10*3/uL [facility] hematocrit, blood 42.0 % [facility] hemoglobin, blood 15.4 g/dL [facility] erythrocyte (RBC) count 5.35 10*6/mm3 [facility] leukocyte count, blood 6.7 10*3/mm3 [facility] [place] HISTORY OF MEDICATION USE Medication Status Instructions Dates Provider Indications Com ments hydrochlorothiazide 12.5 mg capsule active TAKE ONE CAPSULE BY MOUTH EVERY DAY 12/02 Timothy Jackson MD carvedilol 12.5 mg tablet active TAKE ONE TABLET BY MOUTH TWICE DAILY Cyndie Pimentel ibuprofen 400 mg tablet active 1 tablet twice a day as needed 06/14 Timothy Jacksno MD TYLENOL TABLET active Take four times [...] no Hyacinth Pickett smoking status Never smoker Hyacitnh scanlon social history E&M Marital Statu s: [...] physical exercise, frequency, days per week no [facility] caffeine use, averag e drinks per day no [facility] alcohol use, average drinks per day none [facility] smoking status Non-smoker [facility] FUNCTIONAL STATUS Date Observation Value Provider HRA, CV Assess/Plan, Angina (inactive) Management Plan continue current therapy Timothy Jackson MD HRA, CV Assess/Plan, Angina (inactive) Management Plan continue current therapy Timothy Jackson MD HRA, CV Assess/Plan, Angina (inactive) Management Plan continue current therapy [facility] HRA, CV Assess/Plan, Angina (inactive) Management Plan continue current therapy [facility] HRA, CV Assess/Plan, Angina (inactive) Management [...] Payer name Policy type / Coverage type [place] [employer] [place] [employer] Medicaid [id number] ADVANCE DIRECTIVES Name Date DISCUSSED - NO DECISION MADE TREATMENT PLAN Date Name Performer [id number],C, W eight loss advised Cyndie Pimentel [id number],C, H is updated medication list for this problem includes: Simvastatin 10 Mg Tablet (Simvastatin) ..... 1 tablet once a day Cyndie Pimentel [id number],C, B P today: 142/78 P rior BP: [...] 1 tablet once a day Cyndie Loren [id number],C,P t denies chest pain and SOB. He [...] 1 tablet once a day Cyndie Pimentel [id number],S, Recommend to check fasting lipid panel. Keep LDL < 70. H is updated medication list for this problem includes: Simvastatin 10 Mg Tablet (Simvastatin) ..... 1 tablet once a day Cyndie Pimentel [id number],C, B P today: 140/70 P rior BP: [...] by mouth once a day Cyndie Pimentel [id number],S, Cyndie parsons [id number],S, M ost recent carotid duplex was normal. Cyndie Pimentel [id number],C,O linda doing well. Pt denies SOB and [...] mouth once a day Cyndie Pimentel Cardiology yCndie Zaragoza eyer Cardiology: M ost recent carotid [...] but pt not interested at this time. [facility] Cardiology follow up :His updated medication list for this problem includes: Simvastatin 10 Mg Oral Tablet (Simvastatin) ..... One tablet daily [facility] Cardiology follow up :BP today: 139/87 P rior BP: 130/70 (06/13/2019) His updated medication list for this problem includes: Amlodipine Besylate 5 Mg Oral Tablet (Amlodipine besylate) ..... One tab. daily Hydrochlorothiazide 12.5 Mg Oral Capsule (Hydrochlorothiazide) ..... One capsule daily Carvedilol 12.5 Mg Oral Tablet (Carvedilol) ..... One tab twice a day [facility] Cardiology follow up :Doing well. No chest pain or SOB. We will obtain a f/u echo. Will continue current medications. His updated medication list for this problem includes: Amlodipine Besylate 5 Mg Oral Tablet (Amlodipine besylate) ..... One tab. daily Aspirin 81 Mg Oral Tablet (Aspirin) ..... One tab. daily Carvedilol 12.5 Mg Oral Tablet (Carvedilol) ..... One tab twice a day [facility] Cardiology:Down ~20 lbs since . [facility] Cardiology:Recommend ed for PCP to check lipid and liver panels and adjust medications to keep LDL less than 70. Labs reviewed: C HOL: 134 (12/08/2016) HDL: 45 (12/08/2016) LDL: 62 (12/08/2016) TRI (12/08/2016) His updated medication list for this problem includes: Simvastatin 10 Mg Oral Tablet (Simvastatin) ..... One tab. at bedtime [facility] Cardiology:BP today: 130/70 P rior BP: 122/80 (06/14/2018) His updated medication list for this problem includes: Amlodipine Besylate 5 Mg Oral Tablet (Amlodipine besylate) ..... One tab daily Hydrochlorothiazide 12.5 Mg Oral Capsule (Hydrochlorothiazide) ..... One tab. daily Carvedilol 12.5 Mg Oral Tablet (Carvedilol) ..... One tab twice a day [facility] Cardiology:Denies ch est pain or SOB. Does not have fatigue or dizziness. No new EKG changes. His updated medication list for this problem includes: Amlodipine Besylate 5 Mg Oral Tablet (Amlodipine besylate) ..... One tab daily Aspirin 81 Mg Oral Tablet (Aspirin) ..... One tab. daily Carvedilol 12.5 Mg Oral Tablet (Carvedilol) ..... One tab twice a day [facility]iology Followup: BP today: 122/80 P rior BP: 110/80 (03/28/2017) His updated medication list for this problem includes: Amlodipine Besylate 5 Mg Oral Tablet (Amlodipine besylate) ..... One tab daily Hydrochlorothiazide 12.5 Mg Oral Capsule (Hydrochlorothiazide) ..... One tab. daily Carvedilol 12.5 Mg Oral Tablet (Carvedilol) ..... One tab twice a day [facility]iology Followup: His updated medication list for this problem includes: Amlodipine Besylate 5 Mg Oral Tablet (Amlodipine besylate) ..... One tab daily Aspirin 81 Mg Oral Tablet (Aspirin) ..... One tab. daily Carvedilol 12.5 Mg Oral Tablet (Carvedilol) ..... One tab twice a day [facility] Follow up :Exercise and weight loss advised. [facility] Follow up :His updated medication list for this problem includes: Simvastatin 10 Mg Tabs (Simvastatin) ..... One tab. at bedtime [facility] Follow up :BP today: 110/80 P rior BP: 126/81 (11/29/2016) His updated medication list for this problem includes: Amlodipine Besylate 5 Mg Oral Tabs (Amlodipine besylate) ..... One tab daily Hydrochlorothiazide 12.5 Mg Caps (Hydrochlorothiazide) ..... One tab. daily Carvedilol 12.5 Mg Tabs (Carvedilol) ..... One tab twice a day Ever [facility] Cardiology Follow up :Resolved. Echo showed normal EF. Sleep study did not show significant sleep apnea. [facility] Follow up :Most recent carotid duplex was normal. [facility] Follow up :Most recent carotid duplex was normal. [facility] Follow up :No chest pain [...] EMOGLOBIN A1c (496) H EPATIC FUNCTION PANEL (08380) CHOL: 146 (12/13/2012) LDL: 88 (12/13/2012) HDL: 29 (12/13/2012) T (12/13/2012) H is updated medication list for this problem includes: Simvastatin 10 Mg Tabs (Simvastatin) ..... One tab. at bedtime Timothy Jackson MD Cardiology:Will obtain f/u carot id duplex. Timothy Jackson MD Cardiology:STOP BANG score is 4+ . Timothy Jackson MD Cardiology:Orders: S leep Study Home (CPT-29424) Timothy Jackson MD Cardiology:Stable. N o chest [...] the primary physician for that. EF 70%. [facility] (08/20/2009) C ardiac Cath Comments: Successful stenting of the left circumflex using a 3.5 x 20mm Liberte stent. [facility] (12/25/2008) C arotid Doppler/Duplex: LESS THAN 50 % STENOSIS OF THE INTERNAL CAROTID A RTERIES BILATERALLY. (09/02/2008) A rterial Doppler (leg): NO EVIDENCE OF AN PSEUDOANEURYSM IN THE RIGHT GROIN. [facility] (12/27/2008) C HOL: 142 (12/18/2008) LDL: 62 [...] the primary physician for that. EF 70%. [facility] (08/20/2009) C ardiac Cath Comments: Successful stenting of the left circumflex using a 3.5 x 20mm Liberte stent. [facility] (12/25/2008) C arotid Doppler/Duplex: LESS THAN 50 % STENOSIS OF THE INTERNAL CAROTID A RTERIES BILATERALLY. (09/02/2008) A rterial Doppler (leg): NO EVIDENCE OF AN PSEUDOANEURYSM IN THE RIGHT GROIN. [facility] (12/27/2008) C HOL: 142 (12/18/2008) LDL: 62 [...] dysfunction. No evidence of MR, [place], [place], [place]. O (12/18/2008) S tress Echo Findings: Negative Dobutamine echocardiogram. T est is negative by EKG criteria. B aseline echo was normal. (08/21/2008) C ardiac Cath: Severe single vessel coronary disease with 80% stenosis of the left circumflex. Moderate LV disease with 40-50% stenosis of the LAD and 40% of the RCA. EF 70%. Normal Renal arteries. [facility] (12/25/2008) C ardiac Cath Comments: Successful stenting of the left circumflex using a 3.5 x 20mm Liberte stent. [facility] (12/25/2008) H gb: 15.4 (12/18/2008) HCT: 42.0 [...] dysfunction. No evidence of MR, AR, [place], [place]. [facility] (12/18/2008) Timothy Jackson MD routine: H [...] dysfunction. No evidence of MR, [place], [place], [place]. [facility] (12/18/2008) Timothy Jackson MD routine: H [...] rders: A rterial Duplex Lower Extremity Bilateral (CPT-38543) V enous Doppler Bilateral LE (54414) Timothy Jackson MD routine: H is updated [...] O rders: S tress Test - Nuclear (98137) Timothy Jackson MD post cath-stent: H is [...] dysfunction. No evidence of MR, [place], [place], [place]. [facility] (12/18/2008) Timothy Jackson MD post cath-stent: [...] daily BP today: 139/91 Orders: E KG (CPT-97293) R enal Artery Duplex (CPT-71844) Timothy Jackson MD office visit: H is [...] Cath - GC (*) C omplete Echo (CPT-41469) Timothy Jackson MD office visit: H is updated medication list for this problem includes: Metoprolol Succinate 25 Mg Tb24 (Metoprolol succinate) ..... One tab twice a day Aspirin 81 Mg Tabs (Aspirin) ..... One tab. daily BP today: 139/91 Orders: E KG (CPT-11021) R enal Artery Duplex (CPT-34513) Timothy Jackson MD office visit: H is [...] completed EKG Timothy Jackson MD completed SNOMED-CT: 419986521 [id number] Current Medications Documented Timothy Jackson MD completed EKG Timothy Jackson MD completed SNOMED-CT: 082484746 284286 Current Medications Documented Timothy Jackson MD completed Schedule Followup Timothy Jackson MD 1 year com pleted SNOMED-CT: 555023835 802020 Current Medications Documented Timothy Jackson MD completed [...]
--- OUTSIDE RECORDS SUMMARY | 2025-04-08 06:48 | XMS_ITS | Data Portability ---
Author Organization FADIA REINALDOChavez Shirley Address [address] [place] [address] Care Team Providers Care Ciaio Lumite Injector Name Role Phone VICKEY ELLISON Internal Medicine Assessment No assessment recorded. Plan of Treatment Reminders Order Date Submit Date Provider Last Modified By Organization Details Last Modified Time Details Appointments None recorded. Lab noninvasive colorectal cancer DNA + occult blood screening, QL, stool 2023 024 [facility] ([facility] Only), [address], [address], [place], [address], 4 19:15:23 PSA, total, serum or plasma 2023 024 [facility], [address], [place], [address], 4 13:14:43 noninvasive colorectal cancer DNA + occult blood screening, QL, stool 2023 024 [facility] ([facility] Only), [address], [address], [place], [address], 4 08:26:04 CMP, serum or plasma 2023 024 [facility], [address], [place], [address], 4 13:14:41 lipid panel, serum 2023 024 [facility], [address], [place], [address], 4 13:14:41 CBC 2023 [facility], [address], [place], [address], 4 13:14:43 TSH, ultra-sensi tive, serum 2023 [facility], [address], [place], [address], 4 13:14:42 Referral ophthalmolo gist referral 2023 [facility], [address], [place], [address], 13:15:00 Procedures None recorded. Surgeries None recorded. Imaging None recorded. Medication Orders carvedilol 12.5 mg tablet 2024 025 [facility] #[id number], [address], [place], [place], [id number], 13:14:40 amlodipine 5 mg tablet 2024 025 [facility] #[id number], [address], [place], [place], [id number], 13:14:46 hydrochloro thiazide 12.5 mg capsule 2024 025 [facility]85306, [address], [place], [place], [id number], 5 13:14:43 fluticasone propionate 50 mcg/actuati on nasal spray,suspe nsion 2024 025 [facility] #98545, [address], [place], [place], [id number], 5 13:14:43 cetirizine 10 mg tablet 2024 025 [facility] #89693, [address], [place], [place], [id number], 5 13:14:44 simvastatin 10 mg tablet 2024 025 [facility] #48358, [address], [place], [place], [id number], 5 13:14:44 amlodipine 5 mg tablet 2023 024 [facility] #58711, [address], [place], [place], [id number], 4 14:44:55 simvastatin 10 mg tablet 2023 024 [facility] #83944, [address], [place], [place], [id number], 4 14:44:52 Patient TargetsNo targets recorded. Patient Instructions Encounter Date Encounter Id Patient Instructions Last Modified By Organization Details Last Modified Time 03/15/2024 [id number] learning about high blood pressure [email or web address] Not available 03/15/2024 14:44:45 high cholesterol : care instructions Not available 03/15/2024 14:44:45 05/16/2024 [id number] learning about high blood pressure [email or web address] Not available 05/16/2024 10:32:04 high cholesterol : care instructions [email or web address] Not available 05/16/2024 10:32:04 08/13/2024 [id number] A healthy lifestyle: care instructions Not available 08/13/2024 12:47:02 learning about high blood pressure [email or web address] Not available 08/13/2024 12:47:02 11/12/2024 [id number] When You Want to Lose Weight: Care Instructions [email or web address] Not available 11/12/2024 11:48:12 A healthy lifestyle: care instructions [email or web address] Not available 11/12/2024 11:48:12 learning about high blood pressure [email or web address] Not available 11/12/2024 11:48:12 high cholesterol : care instructions [email or web address] Not available 11/12/2024 11:48:12 03/28/2025 [id number] seasonal allergies: care instructions [email or web address] Not available 03/28/2025 13:14:34 Reason for Referral Marketing Information Coordinator Referral for Blind right eye Impaired 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 Routine evaluation Referring Physician: Vickey Ellison, Internal Medicine, Encounter Date: 03/15/2024 Results Created Date Observation Date Name Description Value Unit Range Abnormal Flag Note LastModifiedBy Organization Detail LastModifiedTime 03/15/20 25 03/15/2025 COLOG UARD cologuard result Cancel led - Order d not applic able Not Available [facility] (Cologuard Orders Only) [address] [facility] [address], [place], [address], 03/15/2025 23:52:01 05/17/20 24 05/17/2024 COLOG UARD cologuard result Cancel led - Duplic ate Order not applic able Not Available [facility] (Cologuard Orders Only) [address], [place], [address], 05/17/2024 19:15:23 03/29/20 24 03/30/2024 LIPID PANEL cholesterol, total 91 mg/dL 100-19 9 below low normal Not Available [facility] ([facility]) [address] [facility], [place], [address], 03/30/2024 13:14:41 03/29/20 24 03/30/2024 LIPID PANEL triglyceride s 60 mg/dL 0-149 Not Available [facility] ([facility]) [address], [place], [address], 03/30/2024 13:14:41 03/29/20 24 03/30/2024 LIPID PANEL HDL cholesterol 36 mg/dL >39 below low normal Not Available [facility] ([facility]) [address] [place], [address], 03/30/2024 13:14:41 03/29/20 24 03/30/2024 LIPID PANEL VLDL cholesterol varsha 14 mg/dL 5-40 Not Available [facility] ([facility]) [address] [place], [address], 03/30/2024 13:14:41 03/29/20 24 03/30/2024 LIPID PANEL LDL chol calc ([facility]) 41 mg/dL 0-99 Not Available [facility] ([facility]) [address] [place], [address], 03/30/2024 13:14:41 03/29/20 24 03/30/2024 COMP. METAB OLIC PANEL (14) glucose 89 mg/dL 70-99 Not Available [facility] ([facility]) [address] [place], [address], 03/30/2024 13:14:41 03/29/20 24 03/30/2024 COMP. METAB OLIC PANEL (14) BUN 14 mg/dL 8-27 Not Available [facility] ([facility]) [address] [place], [address], 03/30/2024 13:14:41 03/29/20 24 03/30/2024 COMP. METAB OLIC PANEL (14) creatinine 0.72 mg/dL 0.76-1 .27 below low normal Not Available [facility] ([facility]) [address] [place], [address], 03/30/2024 13:14:41 03/29/20 24 03/30/2024 COMP. METAB OLIC PANEL (14) eGFR 99 mL/mi n/1.7 3 >59 Not Available [facility] ([facility]) [address] [place], [address], 03/30/2024 13:14:41 03/29/20 24 03/30/2024 COMP. METAB OLIC PANEL (14) BUN/creatini ne ratio 19 - Not Available [facility] ([facility]) [address] [facility], [place], [address], 03/30/2024 13:14:41 03/29/20 24 03/30/2024 COMP. METAB OLIC PANEL (14) sodium 142 mmol/ L 134-14 4 Not Available [facility] ([facility]) [address] [facility], [place], [address], 03/30/2024 13:14:41 03/29/20 24 03/30/2024 COMP. METAB OLIC PANEL (14) potassium 3.5 mmol/ L 3.5-5. 2 Not Available [facility] ([facility]) [address] [facility], [place], [address], 03/30/2024 13:14:41 03/29/20 24 03/30/2024 COMP. METAB OLIC PANEL (14) chloride 105 mmol/ L 96-106 Not Available [facility] ([facility]) [address] [facility], [place], [address], 03/30/2024 13:14:41 03/29/20 24 03/30/2024 COMP. METAB OLIC PANEL (14) carbon dioxide, total 22 mmol/ L 20-29 Not Available [facility] ([facility]) [address] [facility], [place], [address], 03/30/2024 13:14:41 03/29/20 24 03/30/2024 COMP. METAB OLIC PANEL (14) calcium 8.4 mg/dL 8.6-10 .2 below low normal Not Available [facility] ([facility]) [address] [facility], [place], [address], 03/30/2024 13:14:41 03/29/20 24 03/30/2024 COMP. METAB OLIC PANEL (14) protein, total 6.7 g/dL 6.0-8. 5 Not Available [facility] ([facility]) [address] [facility], [place], [address], 03/30/2024 13:14:41 03/29/20 24 03/30/2024 COMP. METAB OLIC PANEL (14) albumin 4.1 g/dL 3.9-4. 9 Not Available [facility] ([facility]) [address] [facility], [place], [address], 03/30/2024 13:14:41 03/29/20 24 03/30/2024 COMP. METAB OLIC PANEL (14) globulin, total 2.6 g/dL 1.5-4. 5 Not Available [facility] ([facility]) [address] [facility], [place], [address], 03/30/2024 13:14:41 03/29/20 24 03/30/2024 COMP. METAB OLIC PANEL (14) A/G ratio 1.6 1.2-2. 2 Not Available [facility] ([facility]) [address] [facility], [place], [address], 03/30/2024 13:14:41 03/29/20 24 03/30/2024 COMP. METAB OLIC PANEL (14) bilirubin, total 1.5 mg/dL 0.0-1. 2 above high normal Not Available [facility] ([facility]) [address] [place], [address], 03/30/2024 13:14:41 03/29/20 24 03/30/2024 COMP. METAB OLIC PANEL (14) alkaline phosphatase 78 IU/L 44-121 Not Available [facility] ([facility]) [address] [facility], [place], [address], 03/30/2024 13:14:41 03/29/20 24 03/30/2024 COMP. METAB OLIC PANEL (14) AST (SGOT) 27 IU/L 0-40 Not Available [facility] ([facility]) [address] [place], [address], 03/30/2024 13:14:41 03/29/20 24 03/30/2024 COMP. METAB OLIC PANEL (14) ALT (SGPT) 35 IU/L 0-44 Not Available [facility] ([facility]) [address] [facility], [place], [address], 03/30/2024 13:14:41 03/29/20 24 03/30/2024 TSH TSH 0.894 uIU/m L 0.450- 4.500 Not Available [facility] ([facility]) [address] [place], [address], 03/30/2024 13:14:42 03/29/20 24 03/30/2024 PROST ATE-S [...] t be inter prete d as absol red devil evide nce of the prese nce or absen ce of gillian kaur se. Not Available [facility] ([facility]) [address], [place], [address], 03/30/2024 13:14:43 03/29/20 24 03/30/2024 CBC, PLATE LET, NO DIFFE RENTI AL WBC 5.6 x10e3 /uL 3.4-10 .8 Not Available [facility] ([facility]) [address] [facility], [place], [address], 03/30/2024 13:14:43 03/29/20 24 03/30/2024 CBC, PLATE LET, NO DIFFE RENTI AL RBC 4.50 x10e6 /uL 4.14-5 .80 Not Available [facility] ([facility]) [address] [facility], [place], [address], 03/30/2024 13:14:43 03/29/20 24 03/30/2024 CBC, PLATE LET, NO DIFFE RENTI AL hemoglobin 13.6 g/dL 13.0-1 7.7 Not Available [facility] ([facility]) [address] [facility], [place], [address], 03/30/2024 13:14:43 03/29/20 24 03/30/2024 CBC, PLATE LET, NO DIFFE RENTI AL hematocrit 39.2 % 37.5-5 1.0 Not Available [facility] ([facility]) [address] [facility], [place], [address], 03/30/2024 13:14:43 03/29/20 24 03/30/2024 CBC, PLATE LET, NO DIFFE RENTI AL MCV 87 fL 79-97 Not Available [facility] ([facility]) [address] [facility], [place], [address], 03/30/2024 13:14:43 03/29/20 24 03/30/2024 CBC, PLATE LET, NO DIFFE RENTI AL MCH 30.2 pg 26.6-3 3.0 Not Available [facility] ([facility]) [address] [facility], [place], [address], 03/30/2024 13:14:43 03/29/20 24 03/30/2024 CBC, PLATE LET, NO DIFFE RENTI AL MCHC 34.7 g/dL 31.5-3 5.7 Not Available [facility] ([facility]) [address] [facility], [place], [address], 03/30/2024 13:14:43 03/29/20 24 03/30/2024 CBC, PLATE LET, NO DIFFE RENTI AL RDW 13.9 % 11.6-1 5.4 Not Available [facility] ([facility]) [address] [facility], [place], [address], 03/30/2024 13:14:43 03/29/20 24 03/30/2024 CBC, PLATE LET, NO DIFFE RENTI AL platelets 129 x10e3 /uL 150-45 0 below low normal Not Available [facility] ([facility]) [address] [facility], [place], [address], 03/30/2024 13:14:43 04/09/20 24 04/09/2024 COLOG UARD cologuard result reportable Sample Could Not Be Proces sed n/a The speci men was not colle cted accor ding to the provi ded instr uctio ns. The patie nt will be conta cted to initi ate a new sampl e colle ction . Not Available [facility] (Cologuard Orders Only) [address], [place], [address], 04/11/2024 08:26:04 07/03/20 24 07/03/2024 XR, chest No observ ation record ed. [address] [place], [address], 07/07/2024 04:44:23 08/06/20 24 08/06/2024 XR, chest No observ ation record ed. [address] [place], [address], 08/08/2024 23:50:06 08/06/20 24 08/06/2024 CT, head, w/o contr ast No observ ation record ed. [email or web address] [facility] [address], [place], [address], 08/08/2024 23:50:06 Result Notes None recorded. Problems Name Problem SNOMED Code Status Onset Date Resolution Date Notes Provider Name and Address Organization Details Recorded Time Essential hypertensi on 72683899 Active 2023 Vickey Ellison MD Attn: Accounting ,[address] [facility], [place], [address] , [place] [facility] 4 14:33:58 Screening for malignant neoplasm of colon Active 2023 Vickey Ellison MD Attn: Accounting ,[address] [facility], [place], [address] , [place] [facility] 4 14:40:49 Screening for malignant neoplasm of prostate Active 2023 Vickey Ellison MD Attn: Accounting ,[address] [facility], [place], [address] , [place] [facility] 4 14:41:17 Obesity 699693168 Active 2023 Vickey Ellison MD Attn: Accounting ,[address] [facility], [place], [address] , [place] [facility] 4 11:47:33 Seasonal allergic rhinitis 065308095 Active 2024 Vickey Ellison MD Attn: Accounting ,[address] [facility], [place], [address] , [place] [facility] 5 13:09:53 Acute low back pain 252316275 Completed 03/15/2024 Vickey Ellison MD Attn: Accounting ,[address] [facility], [place], [address] , [place] [facility] 4 14:39:27 Coronary atheroscle rosis 342039655 Active Not Available [facility] 3 16:05:06 Hyperlipid emia 54000764 Active Not Available [facility] 3 16:05:06 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 Procedures Surgical History None recorded. Imaging Results Imaging Date Name Status LastModified by [facility] Details LastModified Time 07/03/2024 XR, chest completed [address] [place], [address], 07/07/2024 04:44:23 08/06/2024 XR, chest completed [address] [place], [address], 08/08/2024 23:50:06 08/06/2024 CT, head, w/o contrast completed [address] [place], [address], 08/08/2024 23:50:06 Procedure Notes None recorded. Medical [...] Available Not Available cetirizine 10 mg tablet TAKE 1 TABLET BY MOUTH EVERY DAY NEEDED active Not Available Not Available No t Available azithromyci n 250 mg tablet TAKE [...] Available Not Available simvastatin 10 mg tablet Take 1 tablet every day by oral route in the evening. 2024 active Not Available Not Available Not [...] TAKE 1 TABLET BY MOUTH EVERY DAY active Not Available Not Available No t Available tramadol 50 mg tablet Take 1 tablet [...] TAKE 1 CAPSULE BY MOUTH EVERY DAY active Not Available Not Available No t Available ibuprofen 200 mg tablet 05/09 completed Not [...] 1 tablet every day by oral route. 03/28 completed Not Available Not Available Not Available ibuprofen 600 mg tablet 05/09 completed Not Available Not Available Not Available methylpredn isolone 4 mg tablets in a dose pack Take 1 dose pk every day by oral route after meals for 6 days. 11/26 completed Not Available Not Available Not Available losartan 50 mg-hydrochl orothiazide 12.5 mg tablet 02/17 completed dry cough ,. Not Available Not Available Not Available fluticasone propionate 50 mcg/actuati on nasal spray,suspe nsion SHAKE LIQUID AND USE 2 SPRAYS IN EACH NOSTRIL DAILY active Not Available Not Available No t Available amoxicillin 875 mg-potassiu m clavulanate 125 [...] completed Not Available Not Available Not Available Delsym Cough-Chest Congestion DM 5 mg-100 mg/5 mL [...] Updated DateTime 4 167.64 cm 29.2 kg/m2 19710.2 2 g 64 /min 98 [degF] 98 % 98 % 142 mm[Hg] 80 mm[Hg] Laura Gates MA [place] [facility] 4 14:21:10 Date Recorded Body height Body mass index (BMI) Body weight Oxygen saturation Oxygen saturation in Arterial blood by Pulse oximetry Heart rate Systolic blood pressure Diastolic blood pressure Provider Name and Address Organization Details Last Updated DateTime 4 167.64 cm 28.7 kg/m2 34867.4 4 g 98 % 98 % 64 /min 122 mm[Hg] 78 mm[Hg] Laura Gates MA [place] [facility] 4 10:15:10 Date Recorded Body height Body mass index (BMI) Body weight Oxygen saturation Oxygen saturation in Arterial blood by Pulse oximetry Heart rate Systolic blood pressure Diastolic blood pressure Provider Name and Address Organization Details Last Updated DateTime 4 167.64 cm 30.8 kg/m2 61471.1 4 g 95 % 95 % 71 /min 129 mm[Hg] 78 mm[Hg] Dayna Mattson MA [facility] 4 12:07:03 Date Recorded Body height Body mass index (BMI) Body weight Systolic blood pressure Diastolic blood pressure Provider Name and Address Organization Details Last Updated DateTime 11/12/2024 167.64 cm 32 kg/m2 28539.29 g 118 mm[Hg] 80 mm[Hg] Dayna Mattson MA [facility] 4 11:20:49 Date Recorded Body height Body mass index (BMI) Body weight Heart rate Oxygen saturation Oxygen saturation in Arterial blood by Pulse oximetry Systolic blood pressure Diastolic blood pressure Provider Name and Address Organization Details Last Updated DateTime 5 167.64 cm 31 kg/m2 19787.7 4 g 79 /min 95 % 95 % 120 mm[Hg] 76 mm[Hg] Dayna Mattson MA [facility] 5 12:45:53 Social History Question Answer Notes LastModified by Organizat ion Details LastModified Time Tobacco Smoking Status Never Smoker Kayla Barnett MA [facility] 07/09/2019 10:37:20 Do You Have An Advance Directive? No Information not available 07/09/2019 What Is Your Level Of Caffeine Consumption? Occasional Information not available 07/09/2019 How Much Tobacco Do You Chew? None Information not available 07/09/2019 What Type Of Diet Are You Following? REGULAR Information not available 07/09/2019 Which Illicit Or Recreational Drugs Have You Used? None Information not available 07/09/2019 Education 9 Information no t available 07/09/2019 Are There Any Guns Present In Your Home? No Information not available 07/09/2019 Hard Of Hearing Or Deaf In One Or Both Ears? Yes Information not available 07/09/2019 Legally Blind In One Or Both Eyes? Yes Right Eye Information not available 07/09/2019 Marital Status Informatio n not available 07/09/2019 What Was The Date Of Your Most Recent Tobacco Screening? 03/28/2025 [email or web address] Information not available 03/28/2025 Performs Monthly Self-breast Exam? No Information not available 07/09/2019 Seat Belts Used Routinely Yes Information not available 07/09/2019 Smoke Alarm In Home Yes Information not available 07/09/2019 How Much Tobacco Do You Smoke? No Information not available 07/09/2019 General Stress Level Medium Information not available 07/09/2019 Do You Use Sunscreen Routinely? Yes Information not available 07/09/2019 Has Tobacco Cessation Counseling Been Provided? No [email or web address] Information not available 03/15/2024 How Many Years Have You Smoked Tobacco? 0 Information not available 07/09/2019 Sex: Unknown Functional Status Question Answer Note LastModified by Organizat ion Details LastModified Time Do you or have you ever used any other forms of tobacco or nicotine? No [email or web address] Information not available 03/15/2022 What is your level of alcohol consumption? None [email or web address] Information not available 11/18/2015 Do you or have you ever used smokeless tobacco? Never used smokeless tobacco Information not available 07/09/2019 What is your occupation? disabled Information not available 07/09/2019 Do you or have you ever used e-cigarettes or vape? Never used electronic cigarettes Information not available 07/09/2019 What is your exercise level? Occasional Information not available 07/09/2019 Mental Status None recorded. Family History Nothing Reported. Medical History Condition Response High Blood Pressure Y Stroke Y High Cholesterol Y Immunizations Vaccine Type Date Status Note Provider Nam e and Address Organization Details Recorded Time COVID-19 vaccine, vector-nr, rS-Ad26, PF, 0.5 mL 1 completed Not Available [facility] 03/27/2023 16:05:06 Influenza, split virus, quadrivalent, preservative 6 completed Not Available [facility] 12/08/2019 02:44:48 zoster recombinant 2 completed Dian Perez, ZOHREH null, [place] [facility] 06/20/2023 10:03:41 zoster recombinant 2 completed Dian Perez [place], [place] [facility] 06/20/2023 10:03:41 COVID-19, mRNA, LNP-S, PF, 100 mcg/0.5mL dose or 50 mcg/0.25mL dose 2 completed Dian Perez [place], [place] [facility] 06/20/2023 10:03:41 COVID-19 vaccine, vector-nr, rS-Ad26, PF, 0.5 mL 1 completed Dian Perez [place], [place] [facility] 06/20/2023 10:03:41 Vaccinia, smallpox Mpox vaccine live, PF, SQ or ID injection 2 completed Not Available [facility] 03/28/2025 12:29:16 COVID-19, mRNA, LNP-S, bivalent, PF, 50 mcg/0.5 mL or 25mcg/0.25 mL dose 2 completed Not Available [facility] 03/28/2025 12:29:16 Vaccinia, smallpox Mpox vaccine live, PF, SQ or ID injection 2 completed Not Available [facility] 03/28/2025 12:29:16 RSV, recombinant, protein subunit RSVpreF, adjuvant reconstituted, 0.5 mL, PF 3 completed Not Available [facility] 03/28/2025 12:29:16 COVID-19, mRNA, LNP-S, PF, 50 mcg/0.5 mL 3 completed Not Available [facility] 03/28/2025 12:29:16 COVID-19, mRNA, LNP-S, PF, 50 mcg/0.5 mL 4 completed Not Available [facility] 03/28/2025 12:29:16 Influenza, high-dose, trivalent, PF 4 completed Not Available [facility] 03/28/2025 12:29:16 COVID-19, mRNA, LNP-S, PF, 50 mcg/0.5 mL 5 completed Not Available [facility] 03/28/2025 12:29:16 Influenza, split virus, quadrivalent, preservative 7 completed Not Available [facility] 12/08/2019 02:46:46 Influenza, split virus, quadrivalent, preservative 9 completed Not Available [facility] 12/08/2019 02:40:24 Influenza, split virus, quadrivalent, preservative 9 completed Not Available [facility] 12/08/2019 02:43:38 Influenza, split virus, quadrivalent, preservative 0 completed Jbe Castano MA null, [place] [facility] 08/21/2020 [...] SNOMED-CT Code Diagnosis ICD10 Code Diagnosis Note [id number] Anay Damon MD [facility] (Adult Med) [address] [place] [address] [phone] 11/18/2015 10:38:22 11/18/2015 12:11:08 Acute low back pain 512423531 M54.5 Coronary atherosclerosis 293637439 I25.83 Hyperlipidemia 70476139 E78.5 History of cerebrovascular accident 771954698 Z86.73 Blind right eye 01029727 0 H54.41 History of hypertension 155983578 Z86.79 [id number] MD Bakari Vela (Adult Med) [address] [place] [address] [phone] 12/30/2015 09:45:48 12/31/2015 10:37:15 Acute low back pain 851773478 M54.5 Blind right eye 89092590 0 H54.41 Coronary atherosclerosis 403423691 I25.83 History of cerebrovascular accident 153509227 Z86.73 History of hypertension 412943198 Z86.79 Hyperlipidemia 44927643 E78.5 [id number] MD Bakari Vela (Adult Med) [address] [place] [address] [phone] 02/24/2016 15:01:54 02/26/2016 10:29:08 Acute bronchitis 92422256 J20.9 Blind right eye 29994153 0 H54.41 Coronary atherosclerosis 457690631 I25.83 History of cerebrovascular accident 755529714 Z86.73 History of hypertension 053726455 Z86.79 Hyperlipidemia 23500142 E78.5 [id number] MD Bakari Vela (Adult Med) [address] [place] [address] [phone] 03/03/2016 14:29:15 03/03/2016 15:31:11 Open wound of finger 500955272 S61.203A [id number] MD Bakari Vela (Adult Med) [address] [place] [address] [phone] 03/09/2016 15:59:32 03/09/2016 16:46:12 Open wound of finger 714579802 S61.203A Coronary atherosclerosis 466521437 I25.83 History of cerebrovascular accident 033463450 Z86.73 History of hypertension 306056857 Z86.79 Blind right eye 51237813 0 H54.41 [id number] MD Bakari Vela (Adult Med) [address] [place] [address] 74292-139 0 03/16/2016 09:51:42 03/16/2016 10:36:47 Open wound of finger 681743121 S61.203A Hyperlipidemia 74441140 E78.5 History of hypertension 634029740 Z86.79 History of cerebrovascular accident 960276197 Z86.73 Coronary atherosclerosis 610204030 I25.83 Blind right eye 76290673 0 H54.41 [id number] MD Bakari Vela (Adult Med) [address] [place] [address] 63745-473 0 03/24/2016 16:06:32 03/24/2016 17:02:39 Open wound of finger 928245257 S61.203A History of hypertension 903731986 Z86.79 History of cerebrovascular accident 335386311 Z86.73 Coronary atherosclerosis 999015276 I25.83 Blind right eye 82381856 0 H54.41 [id number] MD Bakari Vela (Adult Med) [address] [place] [address] 89842-149 0 04/01/2016 16:10:20 04/01/2016 18:07:33 Cellulitis of finger 09947569 L03.116 [id number] [facility] [address] [place] [address] [phone] 0 09/24/2016 09:52:08 01/24/2017 13:21:54 [id number] MD Bakari Vela (Adult Med) [address] [place] [address] 12823-795 0 09/28/2016 10:11:09 10/01/2016 13:05:17 Administration of influenza vaccine 75138783 Z23 [id number] MD Bakari Vela (Adult Med) [address] [place] [address] [phone] 0 02/17/2017 10:19:57 02/17/2017 11:48:03 Blind right eye 443989411 H54.41 Since he had stroke. Coronary atherosclerosis 628679861 I25.[address]. Hyperlipidemia 98044136 E78.5 On simvastati n. Low saturated fat diet. Exercise. Essential hypertension 39097455 I10 History of cerebrovascular accident 936409057 Z86.73 Right hemiparesis 415102 009 G81.90 Dry cough 24628852 R05 [id number] MD Bakari Vela (Adult Med) [address] [place] [address] [phone] 0 03/17/2017 11:43:26 03/17/2017 12:46:34 Essential hypertension 41254911 I10 Hyperlipidemia 65325512 E78.5 On simvastati n. Low saturated fat diet. Exercise. Coronary atherosclerosis 113924788 I25.[address] [id number] MD Bakari Vela (Adult Med) [address] [place] [address] [phone] 0 08/22/2017 15:59:12 08/22/2017 17:56:17 Acute sinusitis 47119383 J01.90 [id number] [facility] [address] [place] [address] [phone] 0 08/29/2017 10:22:38 08/29/2017 13:43:00 Administration of influenza vaccine 20233258 Z23 [id number] nAay Damon MD [facility] (Adult Med) [address] [place] [address] [phone] 0 04/04/2018 15:48:11 04/04/2018 16:55:26 Acute pharyngitis 937019908 J02.9 Avoid closing contact such as: sharing food, drinking, or kissing. [id number] [facility] [address] [place] [address] [phone] 0 07/04/2018 09:17:51 07/04/2018 10:32:45 Spinal stenosis of lumbar region 98149494 M48.062 CAT scan showed L4 and L4-5 stenosis. He is advised to avoid lifting or bending or heavy caring, He declines the walking cane and back brace. Heating/co ld pad as needed. [id number] MD Bakari Vela (Adult Med) [address] [place] [address] [phone] 0 08/24/2018 14:25:57 08/24/2018 16:48:50 Infestation by Sarcoptes scabiei cristy hominis 318114246 B86 [id number] MD Bakari Vela (Adult Med) [address] [place] [address] [phone] 0 09/21/2018 09:22:11 09/27/2018 11:04:08 Hyperlipidemia 78781848 E78.5 On simvastati n. Low saturated fat diet. Exercise. Coronary atherosclerosis 820791902 I25.[address] [id number] MD Bakari Vela (Adult Med) [address] [place] [address] [phone] 0 05/09/2019 15:09:41 05/10/2019 09:30:22 Cervical radiculopathy 83393061 M54.12 Discussed with patient, he declines the PT. [id number] MD Bakari Vela (Adult Med) [address] [place] [address] [phone] 0 07/09/2019 10:06:43 07/09/2019 11:02:04 Coronary atherosclerosis 752671627 I25.[address] Hyperlipidemia 39395966 E78.5 On simvastati n. Low saturated fat diet. Exercise. Chronic neck pain 812745 1099 107 M54.2 [id number] MD Bakari Vela (Adult Med) [address] [place] [address] [phone] 0 09/10/2019 11:48:14 09/11/2019 09:42:49 Coronary atherosclerosis 590643228 I25.[address] Hyperlipidemia 09623978 E78.5 On simvastati n. Low saturated fat diet. Exercise. Blind right eye 90567719 0 H54.61 Stable. Acute low back pain 2788 78232 M54.5 Resolving. Cervical radiculopathy 77103187 M54.12 Discussed with patient, he declines the PT. Essential hypertension 40005185 I10 Low salt diet. Administra tion of influenza vaccine 22868801 Z23 Not sick today. He tolerated short well. [id number] CECILLE DUGGAN (RESIDENT SERVICES COORDINATOR) [address] [place] [address] [phone] 0 01/25/2020 14:10:00 01/25/2020 15:34:05 Acute upper respiratory infection 64469050 J06.9 Instructed to take medication as directed. Reassured and educated pt to stay hydrated and rest. Tylenol or Advil as needed for fevers/joe n. RTC if symptoms worsen or begin to resolve within two weeks. Exposure t o Influenzavirus 786397913 Z20.828 Rapid flu negative. Since pt is 64 years old living in a senior citizen facility with known exposure to influenza, will initiate antiviral chemoproph ylaxis with oral oseltamivi r per CDC guidelines . 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 Eyes injected on exam and pt endorses irritation . Will start artificial tears. Advised to follow up with PCP. [id number] MD Bakari Vela (Adult Med) [address] [place] [address] [phone] 0 08/21/2020 09:03:38 08/26/2020 18:17:45 Administration of influenza vaccine 71220479 Z23 Not sick today. He tolerated short well. Coronary atherosclerosis 350314260 I25.[address] Se[address]. On carvedilol , and aspirin. Hyperlipidemia 20500408 E78.5 On simvastati n. Low saturated fat diet. Exercise. on simvastati n. [id number] MD Bakari Vela (Adult Med) [address] [place] [address] 70376-994 0 02/19/2021 08:38:07 02/20/2021 10:51:09 Coronary atherosclerosis 182557753 I25.[address] On carvedilol , and aspirin. Hyperlipidemia 48660298 E78.5 On simvastati n. Low saturated fat diet. Exercise. on simvastati n. Pruritic disorder 143976 002 L29.9 Controlled by cram as prescribed . [id number] MD Bakari Vela (Adult Med) [address] [place] [address] [phone] 0 08/05/2021 14:09:29 08/10/2021 10:09:56 Administration of influenza vaccine 07339075 Z23 Not sick today. He tolerated short well. Administra tion of pneumococcal vaccine 30126522 Z23 [id number] MD Bakari Vela (Adult Med) [address] [place] [address] [phone] 0 12/14/2021 16:33:14 12/15/2021 09:37:28 Pruritic disorder 647580092 L29.9 Controlled by cram as prescribed . [id number] MD Bakari Vela (Adult Med) [address] [place] [address] 74808-199 0 03/15/2022 14:31:22 03/16/2022 09:04:24 Blind right eye 275008005 H54.61 Stable. Coronary atherosclerosis 886089025 I25.[address] On carvedilol , and aspirin. Hyperlipidemia 92370113 E78.5 On simvastati n. Low saturated fat diet. Exercise. on simvastati n. Essential hypertension 68511101 I10 Low salt diet. [id number] MD Bakari Vela (Adult Med) [address] [place] [address] [phone] 0 06/14/2022 10:08:50 06/15/2022 12:02:05 Blind right eye 086404570 H54.61 Stable. Coronary atherosclerosis 717425951 I25.[address] On carvedilol , and aspirin. Hyperlipidemia 81835010 E78.5 On simvastati n. Low saturated fat diet. Exercise. on simvastati n. Administra tion of diphtheria, pertussis, and tetanus vaccine 017310443 Z23 He tolerated shot well. Also had covid booster. [id number] MD Bakari Vela (Adult Med) [address] [place] [address] [phone] 0 07/19/2022 10:44:48 07/20/2022 08:46:11 Acute laryngitis 8887389 J04.0 Discussed with patient, he agreed to try med as ordered. Go to ER any time for any concern he is sore advised. , He agreed. [id number] MD Bakari Vela (Adult Med) [address] [place] [address] [phone] 0 08/03/2022 11:24:20 08/04/2022 11:44:16 Aphthous ulcer of mouth 192561269 K12.0 superficia l ulcer on the left tongue for 1 week , sore radiating to the left mouth , jaw and neck., no enlarged lymph node, no fever. Discussed with patient he agreed to try med as ordered. Will wait until ulcer heals up , then will consider annual flu shot, he will keep this office informed. [id number] MD Bakari Vela (Adult Med) [address] [place] [address] [phone] 0 08/19/2022 12:23:32 08/20/2022 10:45:17 Administration of influenza vaccine 19216444 Z23 Not sick today. He tolerated short well. [id number] MD Bakari Vela (Adult Med) [address] [place] [address] [phone] 0 09/15/2022 09:41:07 09/16/2022 12:23:10 Acute bronchitis 89918455 J20.9 Discussed with patient , he agreed for the med as ordered. [id number] [facility] [address] [place] [address] [phone] 0 11/26/2022 13:45:38 11/29/2022 13:43:51 Obesity 406139081 E66.9 Exposure t o SARS-CoV-2 060856307 Z20.822 He exposed to some one with positive covid , will send him to [facility] for covid test first, ,He agreed, He has respirator y symptoms. [id number] MD Bakari Vela (Adult Med) [address] [place] [address] [phone] 0 06/20/2023 09:53:31 06/22/2023 08:43:33 Blind right eye 426362027 H54.61 Stable. Coronary atherosclerosis 640348359 I25.[address] On carvedilol , and aspirin. Hyperlipidemia 54855308 E78.5 On simvastati n. Low saturated fat diet. Exercise. on simvastati n. Colon [facility] er screening declined 4028281371 9109 Z53.20 He declined 06-20-23,. [id number] MD Bakari Vela (Adult Med) [address] [place] [address] 71162-539 0 08/25/2023 12:04:58 08/30/2023 12:41:09 [id number] MD Bakari Vela (Adult Med) [address] [place] [address] [phone] 0 12/20/2023 12:15:46 12/22/2023 12:02:59 Hyperlipidemia 01038788 E78.5 On simvastati n. Low saturated fat diet. Exercise. on simvastati n. Coronary atherosclerosis 423047516 I25.[address] On carvedilol , and aspirin. [id number] MD Bakari Covarrubias (Adult Med) [address] [place] [address] [phone] 0 03/15/2024 13:58:03 03/16/2024 08:25:04 Essential hypertension 99070519 I10 Coronary atherosclerosis 796081188 I25.83 F/U with cardiology Hyperlipidemia 74426260 E78.5 Blind right eye 25775188 0 H54.61 Advised pt to see ophthalmol ogist regularly Screening for malignant neoplasm of colon 944486647 Z12.11 Screening for malignant neoplasm of prostate 364581934 Z12.5 [id number] MD Bakari Covarrubias (Adult Med) [address] [place] [address] 33750-018 0 05/16/2024 09:40:29 05/19/2024 08:15:01 Coronary atherosclerosis 419891127 I25.83 F/U with cardiology Essential hypertension 24597595 I10 Hyperlipidemia 23060424 E78.5 Screening for malignant neoplasm of colon 183369709 Z12.11 Repeat needed [id number] MD Bakari Covarrubias (Adult Med) [address] [place] [address] [phone] 0 08/13/2024 11:41:35 08/14/2024 12:59:12 Obesity 424429174 E66.8 Essential hypertension 23265113 I10 Blind right eye 78001355 0 H54.61 F/U ophthalmol ogy as scheduled [id number] MD Bakari Covarrubias (Adult Med) [address] [place] [address] [phone] 0 11/12/2024 10:46:49 11/13/2024 14:08:38 Essential hypertension 56745032 I10 Cont current meds Hyperlipidemia 27981594 E78.5 Coronary atherosclerosis 772628228 I25.83 F/U with cardiology Obesity 208347782 E66.9 [id number] Vickey Ellison MD [facility] (Adult Med) [address] [place] [address] 03/28/2025 12:27:55 04/03/2025 16:15:17 Essential hypertension 83563624 I10 Cont current meds Coronary atherosclerosis 705032595 I25.83 F/U with cardiology Hyperlipidemia 39672619 E78.5 Seasonal a llergic rhinitis 270576356 J30.2 Health Concerns Section Related Observation LastModified by Organization Detai ls LastModified Time None Recorded Concern Status LastModified by Organization Details LastModified Time None Recorded Advance Directives Directive N: Payers Encounter Date Sequence Insurance Name Policy Number Policy Turner Covered Member ID Turner Member ID Guarantor Name 03/15/2024 1 [facility] (MEDICAID HM) [id number] 0003 Jose Miguel Emma [id number] [facility] 05/16/2024 1 [facility] (MEDICAID HMO) [id number] Jose Miguel Emma [id number] Jose Miguel Emma 08/13/2024 1 [facility] (MEDICAID HMO) [id number] 0003 Jose Miguel Emma [id number] Jose Miguel Emma 11/12/2024 1 [facility] (MEDICAID HMO) [id number] 0003 Jose Miguel Emma [id number] Jose Miguel Emma 03/28/2025 1 [facility] (MEDICAID HMO) [id number] 0003 Jose Miguel Emma [id number] Jose Miguel Emma Notes Date Note Type Note Provider Name and Address Organization Details Recorded Time 03/15/2024 text/html Here for routine BP check. Vickey Ellison MD Attn: [address] [place], [address], [facility] [place] 03/15/2024 14:46:24 05/16/2024 text/html Here for BP chec k up. Doing well Vickey Ellison MD Attn: [address] [place], [address], [facility] [place] 05/16/2024 10:32:30 08/13/2024 text/html F/U from ED visi t for right sided headaches. Referred back to ophthalmology. He has been referred to [facility] ophthalmology Vickey Ellison MD Attn: [address], [place], [address], [place] [facility] 08/13/2024 12:47:06 11/12/2024 text/html Here for f/u. Do ing better since last OV Vickey Ellison MD Attn: Accounting[address], [place], [address], [place] [facility] 11/12/2024 11:48:39 03/28/2025 text/html Here for f/u. Noyola s a dry cough and nasal congestion and sneezing Vickey Ellison MD Attn: [address] [facility], [place], [address], [place] [facility] 03/28/2025 13:15:00
--- NOTE | 2025-04-08 07:52 | EST_ITS ---
Patient Info Name: Jose Miguel Carter Age: 69 years : 1955 Gender: Male Ht: 65 in Wt: 192 lbs BSA: 2.03 m2 HR: 56 bpm BP: 116 / 90 mmHg Exam Date: 04/08/2025 7:52 AM Patient Status: O Admit Date: 04/08/2025 Exam Type: CA stress test treadmill w NM A nuclear stress test was performed. Staff Referring Physician: Andry Mauro DO Attending Provider: Andry Mauro DO Exercise Technologist: Janae Nina Exercise Physician: Andry Mauro DO Summary 1. 1. Negative Ad exercise stress test for ischemic ST changes by ECG criteria. 2. 2. Good functional capacity, achieving 10 METs of workload. 3. 3. Hypertensive response to exercise. 4. 4. Appropriate HR response to exercise. 5. 5. Appropriate HR recovery at 1 minute post exercise. 6. 6. Nuclear scan to follow and will be reported separately. Please correlate with it. 7. 6. Patient informed of the above results. Protocol: Ad Stress ECG Details Stage: REST Duration (min): 0 min : 57 sec Speed (mph): 0.0 Grade (%): 0 HR (bpm): 57 SBP (mmHg): 116 DBP (mmHg): 90 METS: --- Stage: REST Duration (min): 6 min : 11 sec Speed (mph): 0.0 Grade (%): 0 HR (bpm): 65 SBP (mmHg): 116 DBP (mmHg): 90 METS: --- Stage: STAGE 1 Duration (min): 1 min : 0 sec Speed (mph): 1.7 Grade (%): 10 HR (bpm): 89 SBP (mmHg): 116 DBP (mmHg): 90 METS: --- Stage: STAGE 1 Duration (min): 2 min : 0 sec Speed (mph): 1.7 Grade (%): 10 HR (bpm): 96 SBP (mmHg): 116 DBP (mmHg): 90 METS: --- Stage: STAGE 1 Duration (min): 3 min : 0 sec Speed (mph): 1.7 Grade (%): 10 HR (bpm): 97 SBP (mmHg): 149 DBP (mmHg): 81 METS: --- Stage: STAGE 2 Duration (min): 1 min : 0 sec Speed (mph): 2.5 Grade (%): 12 HR (bpm): 112 SBP (mmHg): 149 DBP (mmHg): 81 METS: --- Stage: STAGE 2 Duration (min): 2 min : 0 sec Speed (mph): 2.5 Grade (%): 12 HR (bpm): 111 SBP (mmHg): 165 DBP (mmHg): 83 METS: --- Stage: STAGE 2 Duration (min): 3 min : 0 sec Speed (mph): 2.5 Grade (%): 12 HR (bpm): 111 SBP (mmHg): 165 DBP (mmHg): 83 METS: --- Stage: STAGE 3 Duration (min): 1 min : 0 sec Speed (mph): 3.4 Grade (%): 14 HR (bpm): 121 SBP (mmHg): 208 DBP (mmHg): 108 METS: --- Stage: STAGE 3 Duration (min): 2 min : 0 sec Speed (mph): 3.4 Grade (%): 14 HR (bpm): 129 SBP (mmHg): 208 DBP (mmHg): 108 METS: --- Stage: STAGE 3 Duration (min): 2 min : 0 sec Speed (mph): 3.4 Grade (%): 14 HR (bpm): 126 SBP (mmHg): 208 DBP (mmHg): 108 METS: --- Stage: RECOVERY Duration (min): 0 min : 59 sec Speed (mph): 0.0 Grade (%): 0 HR (bpm): 90 SBP (mmHg): 205 DBP (mmHg): 85 METS: --- Stage: RECOVERY Duration (min): 1 min : 59 sec Speed (mph): 0.0 Grade (%): 0 HR (bpm): 83 SBP (mmHg): 205 DBP (mmHg): 85 METS: --- Stage: RECOVERY Duration (min): 2 min : 59 sec Speed (mph): 0.0 Grade (%): 0 HR (bpm): 82 SBP (mmHg): 157 DBP (mmHg): 100 METS: --- Stage: RECOVERY Duration (min): 3 min : 31 sec Speed (mph): 0.0 Grade (%): 0 HR (bpm): 81 SBP (mmHg): 157 DBP (mmHg): 100 METS: --- Rest HR: 65 bpm Peak HR: 129 bpm Rest Sys BP: 116 mmHg Peak Sys BP: 208 mmHg Max Pred HR: 150 bpm % Max Pred HR: 86 % Target HR: 128 bpm Max RPP: 26,832 bpm*mmHg [place] Score: 4 Termination Reason: Reached target heart rate or workload Cardiac Symptoms: Shortness of breath Max ST Seg Deviation: -0.80 mm Total Time: 8 min : 0 sec Rest Bennett BP: 90 mmHg Peak Bennett BP: 108 mmHg Angina Score: None Total METS: 10.3 Resting ECG Sinus rhythm. Stress ECG No ST changes. Arrhythmias None. Report Signatures
== END 2025-04-08 06:47 | disposition home or self-care (01) ==
PROVIDERS: PCP Internal Medicine Gastroenterology; Visit Provider Internal Medicine Cardiovascular Disease
DX: I25.10 Atherosclerotic heart disease of native coronary artery without angina pectoris (principal); I51.0 Cardiac septal defect, acquired; M79.622 Pain in left upper arm
CPT/HCPCS: 78452; 93017; A9502

== ENCOUNTER 2025-05-06 06:45 | Outpatient (CLI) | payer MEDICARE, OTHER, SELFPAY ==
--- NOTE | ~2025-05-06 | MR_ITS ---
MRI of the left shoulder Technique: Axial proton-density fat-sat images, coronal proton density fat-sat and T2 fat-sat images, and sagittal T1-weighted and T2 fat-sat images were acquired. Clinical History: Pain Findings: There is moderate to advanced AC joint degenerative change with bony productive change of b oth sides the joint and small amount of fluid in the joint space. Small subacromial spur present. Cor acoclavicular, coracoacromial, and coracohumeral ligaments are intact. There is severe supraspinatus and infraspinatus tendinosis, without partial or full-thickness tear. S ubscapularis tendon is intact with mild to moderate tendinosis. Tendon of the long head of the biceps is intact. There is superior labral tear extending to anterosuperior and posterior superior portions. Inferior glenohumeral ligament is intact. There is focal high-grade chondromalacia the central aspect of the glenoid, with focal subchondral cystic change in this region. There is mild chondromalacia th e humeral head. No joint effusion present. There is minimal fluid in the subacromial/subdeltoid bursa . No muscle atrophy or edema. Impression: Severe rotator cuff tendinosis without partial or full-thickness tear. SLAP tear of the labrum. 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 Moderate to advanced AC joint degenerative change, as detailed above. Reviewed, dictated and finalized at [facility]. Impression: Severe rotator cuff tendinosis without partial or full-thickness tear. SLAP tear of the labrum. 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 Moderate to advanced AC joint degenerative change, as detailed above.
--- OUTSIDE RECORDS SUMMARY | 2025-05-06 06:47 | XMS_ITS | Continuity of Care Document ---
Author Organization [facility] Address [address] [place] [address] [place] [address] Phone Care Team Providers Care Rolled Materials Worker Name Role Phone Imani Hernandez Unavailable Unavailable Procedures Procedure Date Eye Exam & Treatment Refraction Office/outpatient Visit, Est Eye Exam, New Patient Advance Directives Directive Yes / No Effective Date File Name No Information Encounters Encounter Description Practice Location Reason(s) For Visit Diagnoses Date Provider Providers Copied on Encounter [facility], [address] [place] [address] [address], [place], [place], [id number], [place] tel:[phone] [facility] No Information Jul-2 5-200 8 Mary [address] [facility] , [address], [place], [place], [facility], [place]. tel:[phone] Office/outpat ient Visit, Est [facility], [address] [place] [address] [address], [place], [place], [id number], [place] tel:[phone] [facility] No Information Sep-0 6-200 7 Mary [address], [place], [address], [place]. tel:[phone] [facility], [address] [place] [address] [address], [place], [place], [id number], [place] tel:[phone] [facility] No Information 2 3-200 7 Mary [address], [address], [place], [address], [place]. tel:[phone] Family History Family Member Type Diagnosis Age At Onset No Information Payers Payer name Insurance type Covered democrat ID Authortesfaye billings(s) Medicaid [employer] [id number] Social History Type Description Quantity Date Captured [...]
== END 2025-05-06 06:46 | disposition home or self-care (01) ==
PROVIDERS: PCP Internal Medicine Gastroenterology; Visit Provider Nurse Practitioner Family
DX: M75.92 Shoulder lesion, unspecified, left shoulder (principal); S43.432A Superior glenoid labrum lesion of left shoulder, initial encounter; M94.212 Chondromalacia, left shoulder; M85.612 Other cyst of bone, left shoulder; M19.012 Primary osteoarthritis, left shoulder
CPT/HCPCS: 73221